=== PATIENT | male | born 1950 | race Caucasian/White ===

== ENCOUNTER 2023-10-12 08:50 | Observation (INO) ==
--- NOTE | 2023-10-12 10:24 | History & Physical Bridge Note ---
Date of Service October 12, 2023 History & Physical Bridge Note I have examined the patient, reviewed the History & Physical and in the interval since the performance of the History & Physical I have noted the following changes of clinical significance: no changes noted
--- NOTE | 2023-10-12 10:37 | Pre Anesthesia Assessment ---
Date of Service October 12, 2023 Pre Sedation Assessment Vital Signs Temp Pulse Resp BP Pulse Ox O2 Del Method 10/12/23 09:40 36.6 C 61 16 121/77 97 Room Air Cardiovascular RRR, no murmur, no edema Respiratory normal respiratory effort, lungs clear to auscultation Pre-Sedation Airway Assessment Smoking Status: Light tobacco smoker Hx Sleep Apnea: No Short, Thick Neck: No Thyromental Distance: > or= 3.5 Finger Breadths Oral Cavity: + WNL Mallampati Class: III ASA: ASA3 NPO Status Date of Last Intake of Fluids: 10/12/23 Time of Last Intake of Fluids: 07:00 Last Oral Intake of Fluids Comment: sips with meds Date of Last Intake of Solid Food: 10/11/23 Time of Last Intake of Solid Foods: 20:00 Procedure Planning Contraindications for Sedation: none Current Medications Reviewed: Yes Notes The planned sedation has been discussed with the patient. Informed Consent was obtained. I have identified the patient, determined the appropriateness of sedation and have assessed the patient immediately prior to the procedure. All medicine(s) and interventions are by my order.
[2023-10-12] MEDS: niCARdipine HCL INJ 2.5 MG/ML 10 ML AMP ONE (11:58)
[2023-10-12] MEDS: NITROGLYCERIN/D5W 100MCG/ML 20ML SYR ONE (11:59)
--- NOTE | 2023-10-12 12:32 | Cardiac Catheterization ---
[facility] Data: Client Project Coordinator Cardiac Status Clinical evaluation leading to the procedure CAD Presenation: Stable angina Anginal Classification: CCS III Heart Failure: No Cardiogenic Shock within 24 Hours: No Cardiac Arrest within 24 Hours: No Imaging Studies Past 6 Months: Yes Stress Studies Past 6 Months: No Coronary Anatomy Dominant: Right Diagnostic Physicians Name: Benjie Bains MD Status: Elective Closure Device Percutaneous Entry Location: Radial Closure Device: Radial Band Recommendations: Management Recommendatons Cardiac Cath Procedure Full Procedure Date October 12, 2023 Pre-Procedure Diagnosis Pre-Procedure Diagnosis: Angina AUC Score AUC Score: 7 Post-Procedure Diagnosis Post-Procedure Diagnosis: Moderate CAD Procedure(s) Performed Procedure(s) Performed: Coronary Angiography and Left Heart Cath Insurance Sales Assistant Benjie Bains MD User Experience Researcher(s) Rodri Estimated Blood Loss Estimated Blood Loss: < 20 ml Medication(s) Medication(s): Fentanyl, Heparin, Lidocaine 1%, Nicardipine and Versed Summary of Findings Procedure: 1. Coronary angiography 2. Left heart catheterization 3. Moderate sedation Indication: Mr. Gonzales is a pleasant 72-year-old gentleman with a history significant for left bundle branch block, PVCs and Crohn's disease. He has been experiencing exertional angina with associated shortness of breath and decreased exercise tolerance. Coronary angiography: 1. Left main: Distal 20-30%. 2. Left anterior descending: Calcifications noted proximal to mid LAD. Proximal LAD 20%. Mid LAD 60-70% at bifurcation of medium caliber D1. Possible severe CAD of ostial D1, 60-80%. Mid LAD approximately 60% at bifurcation of small D2. LAD wraps around the apex. SIRIA-3 flow. 3. Circumflex: Proximal circumflex 60% at bifurcation of very large OM1. Mid circumflex 30%. Distal circumflex 20%. Luminal irregularities proximal OM1. Multiple lateral branches from OM1 with first lateral branch ostial 70% but small caliber. Medium caliber OM 2 without significant CAD. 4. Right coronary artery: RCA is large and dominant. Diffuse mild CAD 30 to 40% throughout the proximal, mid, and distal RCA. PDA and PL branches without significant CAD. Left heart catheterization: 1. Left ventriculography was not performed. 2. LVEDP 14 mmHg. 3. No significant aortic stenosis. Moderate sedation: 1. Sedation start time: 11:55 AM 2. Sedation end time: 12:12 PM Procedural notes: 1. Catheterization was performed via the right radial artery without known complication. 2. Arterial spasm was noted in the right upper extremity when attempting to advance 6 Indonesian JR4 diagnostic catheter, following angiography of the left system. There was also difficulty advancing 5 Indonesian JR4 diagnostic catheter. 4 Indonesian JR4 diagnostic catheter was successfully advanced to perform selective coronary angiography of the RCA. 3. Additional sedation and intra-arterial nicardipine was provided. Impression: 1. Moderate to severe CAD involving the mid LAD, D1, and proximal circumflex. 2. Otherwise, nonobstructive CAD. 3. Mildly elevated left-sided filling pressure. 4. No aortic stenosis. Plan: 1. Images reviewed with Dr. Juarez of interventional cardiology who plans on pe rforming further investigation of LAD and circumflex CAD. Decisions on management will be made based upon these findings. 2. Risk factor modification. Hemodynamics Rest Ao:: 135/55 Final Ao: 123/61 LV: 132/7/14 Recommendations Recommendations: Management Recommendatons Specimens Specimens: None Radiation Exposure (mGy) 650 mGy. Fluoro time 4.5 min. Contrast (mls) 45 ml Procedural Complication(s) None Disposition remains in label operator for interventional cardiology as noted I attest to the content of the Intraoperative Record and any orders documented therein. Any exceptions are noted below. [facility] Card Cath Procedure Codes Cardiac Catheterization Procedure 1: Cardiovascular Cath Procedures: 41756 Coronaries and LHC (+/-LV) Moderate Sedation Procedure 1: Sedation/Anesthesia: 80935 Mod Sedation by the same physician;Init15 Min Child Age 5 & Up Procedure 2: Sedation/Anesthesia: 59929 Mod Sedation by the same physician; Ea [id number] Minutes PG Care Time/CCT Total # of Minutes Spent Total Time Spent with Patient: Total time spent is greater than 50% in coordination of care (as documented) at patient's floor/unit and/or counseling patient:
[2023-10-12] MEDS: ADENOSINE IV SOLN 3 MG/ML 20 ML VIAL IV ONE (13:43)
[2023-10-12] MEDS: fentaNYL citrate PF 100 MCG/2 ML VIAL ONE ×4 (13:44→15:03)
[2023-10-12] MEDS: HEPARIN (PORCINE) 1000 UNIT/ML 10 ML (CATH LAB USE ONLY) ONE ×2 (13:45→14:54)
[2023-10-12] MEDS: MIDAZOLAM HCL 1 MG/ML 2ML VIAL ONE ×6 (13:47→14:56)
[2023-10-12] MEDS: diphenhydrAMINE 50 MG/ML VIAL ONE (14:55)
[2023-10-12] MEDS: ONDANSETRON INJ 2 MG/ML 2 ML VIAL ONE (14:55)
[2023-10-12] MEDS: EPTIFIBATIDE 2 MG/ML 10 ML VIAL (CATH LAB USE ONLY) IV ONE (14:56)
[2023-10-12] MEDS: IODIXANOL (VISIPAQUE) 320 MG/ML 100ML IV ONE (15:03)
[2023-10-12] MEDS ORDERED: STAT IV Infusion **Titration per Protocol STA ×2 (15:40→16:29)
[2023-10-12] MEDS ORDERED: EPTIFIBATIDE BOLUS/DRIP IV STA (15:40)
[2023-10-12] MEDS ORDERED: EPTIFIBATIDE 75 MG/100 ML VIAL IV SCH (15:45)
[2023-10-12] MEDS ORDERED: ACETAMINOPHEN 325 MG TAB PO PRN (15:46)
--- NOTE | 2023-10-12 15:53 | History & Physical Report ---
Date of Service October 12, 2023 Assessment & Plan (1) Coronary artery disease: Plan: CAD s/p PCI - Cath results: Multivessel coronary artery disease. Calcified, diffuse proximal to mid LAD up to 80%x 90% calcified ostial D1x, Borderline diffuse mid circumflex disease. s/p PCI of proximal mid LAD with single drug-eluting stent c/b dissesction, unsuccessful PCI of proximal D1 with single ABDI. Unable to reopen occluded jailed stent. Echo pending. Last echo 2021 with EF 50-55%, abnormal septal motion consistent with bundle branch block. Has previously followed with [facility] 1 episode of V-fib during procedure s/p shock with return to sinus rhythm. Troponin trended Integrilin drip continued Was on nitro drip which was discontinued after the development of aVF, and restarted subsequently in the ICU. Brilinta/aspirin, beta-rhona, JARETT, statin per cardiology recommendations (2) Hypertension: Plan: Hypertension Beta-rhona, JARETT as noted (3) Kidney stones: Plan: History of nephrolithiasis Preoperative creatinine 1.21, creatinine on admission 0.78. No evidence of obstruction. No flank pain. (4) Crohns disease: Plan: S/p 3 partial resections. No longer on maintenance medications due to intolerance/side effects. No recent symptoms, although requires sublingual B12 supplementation. Denies recent diarrhea, hematochezia, melena, abdominal pain. No acute change in management at this time (5) Pulmonary embolism: Plan: History of DVT/PE Single episode of provoked PE treated with 4.5 months of anticoagulation which was then discontinued by outpatient providers. Has followed up with [facility] hematology, hypercoagulable workup was negative CTA 10/02/2023 for elevated D-dimer and tachycardia with no evidence of PE No acute change in management at this time Plan Disposition: ICU CODE STATUS: Full code Diet: Heart healthy Collateral pending, records have been faxed to PCPs office and [facility]. History of Present Illness Primary Care Provider: Noah Salmon 72-year-old male with a past medical history of hypertension, DVT/PE, Crohn's disease s/p partial bowel resection, LBBB, nephrolithiasis, And recurrent chest pain who presented for cardiac catheterization. During catheterization was found to have extensive CAD including 80% diffuse LAD disease, 60% proximal circumflex disease, and a dominant RCA with diffuse 30 to 40% disease. Patient underwent PCI of the LAD which was complicated by LAD dissection which was managed with stent placement, with loss of second diagonal. Patient pain had improved however experienced V-fib requiring 1 shock with return to sinus rhythm and hemodynamically stable since. Is recommended for ICU admission, Integrilin drip, and post PCI care. [facility] record request pending for collateral Johnny is seen at the bedside postcatheterization. Initially felt well, had return of 8/10 chest pain and was subsequently given morphine with improvement around 5/10. He is on a nitro gtt. which has been reinitiated and currently at a rate of 10. He reports that over the last 4 months he has had chest discomfort and shortness of breath limiting his exertion which improves at rest but which is gradually gotten worse. He did not have episodes of sweating with this. No prior history of CAD. He reports he does have a history of hypertension, past DVT, kidney stones. Presented for diagnostic catheterization and subsequently progressed to intervention. Had an episode of V-fib s/p cardioversion currently in sinus. Endorses a history of Crohn's for which he has had 3 partial bowel resections. He reports he was previously on Biologics but did not tolerate them due to extensive side effects follows currently with [facility] gastroenterology and is not on any maintenance medications, alth ough smokes a cigar daily which seems to keep his Crohn's in remission. Declines nicotine patch. He reports he rarely drinks alcohol. Allergy to penicillin as a child. Denies other medication allergies. Reports his right wrist is without pain or swelling at time of reassessment. Denies headache. Overall feels he is improving. No additional questions at bedside visit Allergies Allergy/AdvReac Type Severity Reaction Status Date / Time Penicillins Allergy Unknown as a child Verified 10/12/23 10:20 - unknown Home Medications Medication Instructions Recorded Confirmed Type cholecalciferol (vitamin D3) 250 250 mcg PO QAM 11/17/22 10/12/23 History mcg (10,000 unit) capsule mecobalamin (vitamin B12) 5,000 5,000 mcg PO QAM 11/17/22 10/12/23 History mcg chewable tablet omeprazole 20 mg capsule,delayed 20 mg PO DAILYBB 11/17/22 10/12/23 History release amlodipine 10 mg tablet 10 mg PO DAILY #90 tabs 02/07/23 10/12/23 Rx lisinopril 10 mg tablet 10 mg PO QAM 10/02/23 10/12/23 History aspirin 81 mg tablet,delayed 81 mg PO DAILY #90 tabs 10/05/23 10/12/23 Rx release metoprolol tartrate 25 mg tablet 25 mg PO BID #60 tabs 10/05/23 10/12/23 Rx Past Med/Surg History Problem List (Updated 10/12/23 @ 18:44 by Gerardo Adkins MD) Pulmonary embolism bilateral (March 2022) possibly related taking Stellara (no other possible cause). treated with anticoagulants for 4.5 months. no current issues. treated at [facility] in [place], [place] then patient did follow with [facility] at the time. negative work up. Crohns disease no current treatment - stable and controlled Coronary artery disease Ventricular fibrillation Exertional angina Thyroid nodule (Acute) Acute hypokalemia (Acute) Shortness of breath (Acute) Chest pain (Acute) Penile curvature, acquired Kidney stones frequent (x38) Hypertension Atypical chest pain Decreased exercise tolerance LBBB (left bundle branch block) PVCs (premature ventricular contractions) Abnormal ECG Encounter for pre-operative examination Right nephrolithiasis Medical History Hx of de la garza GERD (gastroesophageal reflux disease) Hx of thyroid nodule Crohns disease Pulmonary embolism Surgical History History of skin graft History of lithotripsy History of cystoscopy H/O left inguinal hernia repair History of cholecystectomy History of appendectomy History of esophagogastroduodenoscopy (EGD) History of bowel resection History of colonoscopy Family History Father FHx: Crohn's disease Social History Smoking Status: Light tobacco smoker Tobacco Type: Cigars Cigarettes Per Day: 1 cigar daily (advised); Second Hand Exposure: No; Do You Dip or Chew Tobacco: No; Hx Alcohol Use: Yes Hx Substance Use: No Preferred Language: Paraguayan Communication Ability: Effective Oil Processing Technician Required: No Beliefs That Will Affect Care: None Current Living Situation: Spouse Feels Safe at Home: Yes Physical Exam Physical Exam: General: A&Ox3. NAD. Cooperative. HEENT: Atraumatic, normocephalic. PERLAA. Vision and hearing grossly intact Pulm: CTAB A&P. -wheezes, -rales, -rhonchi. Symmetrical chest rise. No increased work of breathing. No respiratory distress. Cardiac: RRR, -mrg. Radial pulses intact and symmetrical. Abdominal: Nontender, nondistended, soft. BS present. Ext: RIGHT wrist with TR band in place. no hematoma. sensation intact in fingertips bilaterally.Cap refill brisk in fingertips bilaterally. No LE edema. Results & Data Results & Data Vital Signs (Past 12 Hours) Vital Signs Temp Pulse Resp BP Pulse Ox O2 Del Method O2 Flow Rate 10/12/23 15:35 75 18 124/69 97 Room Air, Nasal Cannula 10/12/23 15:25 75 18 131/77 97 Nasal Cannula 3 10/12/23 15:21 75 18 131/77 97 Nasal Cannula 3 10/12/23 15:13 75 18 131/77 97 Nasal Cannula 3 10/12/23 09:40 36.6 C 61 16 121/77 97 Room Air PG Care Time/CCT Total # of Minutes Spent Total Time Spent with Patient: Total time spent is greater than 50% in coordination of care (as documented) at patient's floor/unit and/or counseling patient: Coding Level of Care Code 22578 INT INP/OBS CARE 375MIN Diagnoses Coronary artery disease I25.10 Hypertension I10 Kidney stones N20.0 Crohns disease K50.90 Pulmonary embolism I26.99
[2023-10-12] MEDS: SODIUM CHLORIDE 0.9% 1,000 ML IV SCH (16:10)
--- NOTE | 2023-10-12 16:25 | Post Anesthesia Assessment ---
Date of Service October 12, 2023 Post Sedation Assessment Vital Signs Temp Pulse Resp BP Pulse Ox O2 Del Method O2 Flow Rate 10/12/23 15:46 73 18 130/74 95 Room Air, Nasal Cannula 10/12/23 15:45 70 18 130/71 97 Room Air, Nasal Cannula 10/12/23 15:35 75 18 124/69 97 Room Air, Nasal Cannula 10/12/23 15:25 75 18 131/77 97 Nasal Cannula 3 10/12/23 15:21 75 18 131/77 97 Nasal Cannula 3 10/12/23 15:13 75 18 131/77 97 Nasal Cannula 3 10/12/23 09:40 98 F 61 16 121/77 97 Room Air Recovery Score Activity: Moves 4 extremities Respiration: Deep Breath/Cough Circulation: +/-20% PreAnes Value Consciousness: Fully Awake Oxygen Saturation: O2 needed for >90% Discharge Sedation Level of Care: Fast Track Phase II Post Sedation Plan On clinical assessment, the patient appears to have tolerated the sedation without complications. Patient is recovering as anticipated. Patient will continue to be monitored by nursing and may be discharged when sedation discharge criteria are met per below protocol. Upon Completions of procedure up to 15 minutes continue every 5 minute vital signs and the P.A.R. score; then discharge to a Phase I or Fast Track to Phase II per the following guidelines: * Discharge Patient to appropriate Phase II area if PAR is 8 or greater or return to pre- procedure baseline. The post - procedure orders will be as directed. * If PAR score is less than 8 or not return to pre-procedure baseline then patient will follow Phase I monitoring till PAR is reached for Phase II. The Phase I may be done in procedure room or may call to secure a Phase I area. * If naloxone or flumazenil are used for reversal, hold in Phase I for continued monitoring from when last reversal dose was given for a minimum of 60 minutes or longer pending the nurse and/or physician discretion of patient condition before discharge to Phase II. Please call the Sedation Physician to re-evaluate and complete post-note for discharge to Phase II area. Do NOT discharge from procedure sedation or Phase 1 until post- sedation evaluation note is complete by procedure /sedation MD Sedation Discharge Instructions to be given to the patient at discharge to home.
[2023-10-12] MEDS: NITROGLYCERIN/D5W 100MCG/ML 250 ML IV SCH (16:26)
--- NOTE | 2023-10-12 16:29 | Cardiac Catheterization ---
[facility] Data: Health Services Information Specialist Cardiac Status Clinical evaluation leading to the procedure CAD Presenation: Unstable angina Anginal Classification: CCS III Diagnostic Physicians Name: Thomas Juarez MD Closure Device Recommendations: PCI without planned CABG Cardiac Cath Procedure Full Procedure Date October 12, 2023 Pre-Procedure Diagnosis Pre-Procedure Diagnosis: Angina, CAD and Cardiomyopathy AUC Score AUC Score: 7 Post-Procedure Diagnosis Post-Procedure Diagnosis: Severe CAD and Successful PCI Procedure(s) Performed Procedure(s) Performed: Coronary Angiography, Drug Eluting Stent, Ultrasound Guided Vascular Access, IVUS and Fractional Flow [employer] Representative Thomas Juarez MD Divemaster(s) Rodri Estimated Blood Loss Estimated Blood Loss: < 20 ml Medication(s) Medication(s): Adenosine, Fentanyl, Heparin, Lidocaine 1%, Nicardipine, Nitroglycerin and Versed Medication(s): Ticagrelor Summary of Findings Indication: Angina, cardiomyopathy Access: 6 Fr slender right radial artery Catheters: EBU 3.5 guide Findings: For full details of patient's coronary angiography please see cath report dictated by Dr. Bains. Briefly, patient found to have moderate to severe multivessel CAD. Decision to further assess with FFR. Procedure: -Left main cannulated with EBU 3.5 guide guide -BMW wire placed into distal LAD -ACIST Catheter placed across stenosis -Pd/Pa 0.91 -FFR 0.78 Prowater wire placed into distal circumflex -ACIST Catheter placed across stenosis -Pd/Pa 0.95 -FFR 0.80 -- PCI -- Antithrombotic therapy: Heparin, Integrilin, ticagrelor Procedure: Left main cannulated with EBU 3.5 guide Pre-procedure flow SIRIA [address] in LAD after FFR. Prowater wire navigated into first diagonal [place]ley IVUS catheter placed into mid LAD. Pullback revealed severe diffuse heavily calcified disease extending from mid segment back to proximal LAD. Also with 40 to 50% ostial stenosis. Mild eccentric calcified plaque (less than 20%) in distal left main. IVUS catheter placed into diagonal. Severe calcified ostial stenosis noted. Proximal diagonal lesion predilated with 2.0 compliant balloon 2.0 balloon placed into mid LAD Dilated diagonal lesion stented with 2.25 x 12 mm Xience drug-eluting stent placed at diagonal ostium. Stent postdilated with stent balloon Post stent deployment developed new chest pain and noted to have SIRIA I flow in LAD with evidence of mid LAD dissection/thrombus Additional heparin administered. Mid LAD dilated with 2.0 balloon, 2.5 and 3.0 balloons With the aid of GuideLiner support catheter proximal to mid LAD stented with 3.0 x 38 mm [place] drug-eluting stent Stent post-dilated with 3.5 noncompliant balloon Post stenting angiography revealed occluded D1 Numerous times made to rewire into D1 (commuter pilot 50, whisper, Fielder XT) but unsuccessful Residual severe stenosis at takeoff of D1 postdilated with 4.0 NC to high hemispheres but still with residual stenosis Proximal to mid LAD stent further postdilated with shockwave intravascular lithotripsy (3.5 balloon, 60 pulses). With shockwave had expansion of resistant mid aspect of stent. Further attempts made to rewire into diagonal again unsuccessful Noted to have residual stenosis in LAD stent and some concern for thrombus at takeoff of D2. Also noted to have with severe stenosis at ostium of jailed D2 with SIRIA I-II flow Started on Integrilin infusion LAD rewired with BMW. Second diagonal rewired with commuter pilot 50 Distal aspect of stent re-postdilated with 3.5 NC Jailed ostial/proximal D2 dilated with 2.0 balloon IC vasodilators administered for spasm Post procedure SIRIA 3 flow, LAD stent well-expanded with minimal residual stenosis. Jailed D2 with SIRIA III flow. Stent in D1 remained occluded despite numerous rewiring attempts. During procedure with occluded D1 had significant pain requiring repeated bolus fentanyl/Versed. Started on nitroglycerin infusion. During attempt made to measure post procedure LVEDP with pigtail patient developed VF requiring defibrillation at 200 J x 1. Post defibrillation had return to sinus rhythm and remained hemodynamically/electrically stable in Health Services Information Specialist/recovery area. Arterial Closure: TR band Summary: 1. Multivessel coronary artery disease -Calcified, diffuse proximal to mid LAD up to 80% (FFR 0.78). 90% calcified ostial D1 Borderline diffuse mid circumflex disease (FFR 0.80) 2. PCI of proximal to mid LAD with single drug-eluting stent (3.0 x 38 mm [place]; postdilated with 3.5, 4.0 NC and 3.5 intravascular lithotripsy balloon). 3. Unsuccessful PCI of proximal D1 with single ABDI. Unable to reopen occluded jailed stent. Recommendations: To ICU for continued monitoring, pain control Loaded with ticagrelor 180 mg in Health Services Information Specialist Continue Integrilin for 8 hours Continue dual-antiplatelet therapy for at least 1 year Trend troponin until peak, repeat echo in a.m. Consult cardiac Rehab Hemodynamics Rest Ao:: 123/61/107 Final Ao: 134/65/92 LV: 125/13 Recommendations Recommendations: PCI without planned CABG Specimens Specimens: None Radiation Exposure (mGy) 8107 Contrast (mls) 285 total Anesthesia Moderate [id number] Procedural Complication(s) None Disposition PCU I attest to the content of the Intraoperative Record and any orders documented therein. Any exceptions are noted below. [facility] Card Cath Procedure Codes Cardiac Catheterization Procedure 1: Cardiovascular Cath Procedures: 98101 (Doppler) Pressure Wire Procedure 2: Cardiovascular Cath Procedures: 28907 (Doppler) Pressure Wire Addl vessel Therapeutic Services & Ancillary Procedure 1: Cardiovascular Tx and Anc Procedures: 43600 IV Ultrasound (Coronary or Graft) Moderate Sedation Procedure 1: Sedation/Anesthesia: 36832 Mod Sedation by the same physician; Ea [id number] Minutes Stenting Procedure 1: Cardiovascular Stent Procedures: 95268 Perc transcatheter placement of intracoronary stent(s), with ang PG Care Time/CCT Total # of Minutes Spent Total Time Spent with Patient: Total time spent is greater than 50% in coordination of care (as documented) at patient's floor/unit and/or counseling patient:
[2023-10-12 16:56] LABS: Basophils # (auto) 0.07 K/uL (0.00-0.20); Basophils % (auto) 0.6 %; Eosinophils # (auto) 0.99 K/uL (0.00-0.50); Eosinophils % (auto) 8.2 %; Hematocrit (blood only) 39.4 % (42.0-52.0); Immature Granulocytes # (auto) 0.04 K/uL (0.01-0.20); Immature Granulocytes % (auto) 0.3 %; Lymphocytes # (auto) 2.08 K/uL (1.20-3.40); Lymphocytes % (auto) 17.2 %; Mean Corpuscular Hemoglobin 29.2 pg (25.0-34.0); Mean Corpuscular Volume 88.5 fL (80.0-100.0); Mean Platelet Volume 10.7 fL (9.4-12.4); Monocytes # (auto) 0.42 K/uL (0.11-0.59); Monocytes % (auto) 3.5 %; Neutrophils # (auto) 8.49 K/uL (1.40-6.50); Neutrophils % (auto) 70.2 %; Platelet Count 281 K/uL (130-400); RDW Coefficient of Variation 13.5 % (11.5-14.5); RDW Standard Deviation 43.8 fL (36.4-46.3); Red Blood Count 4.45 M/uL (4.70-6.10); White Blood Count 12.09 K/ul (4.8-10.8)
--- NOTE | 2023-10-12 17:08 | Critical Care Consultation ---
Date of Consultation October 12, 2023 Assessment & Plan (1) Ventricular fibrillation: (2) Coronary artery disease: (3) Chest pain: Plan 72-year-old male with a history of hypertension, DVT, Crohn's disease status post partial bowel resection, nephrolithiasis and left bundle branch block who presented for elective coronary angiography. Underwent stenting to the LAD and diagonal branches. Has diffuse severe disease noted on angiography. Had a bout of ventricular fibrillation and received defibrillation with 200 J in the [employer]. Regained consciousness with normal hemodynamics. Currently on Integrilin infusion. Monitor in ICU setting with telemetry and frequent neurovascular checks. Continue dual antiplatelets, high-dose statin, beta-blockade and Integrilin infusion per cardiology recommendations. Restart nitroglycerin if patient has worsening chest pain. Patient with frequent PVCs and ongoing chest pain. Currently titrating up nitroglycerin drip and will give additional morphine. Repeating BMP to check electrolytes. Follow troponins and echocardiogram. Discussed with landscape architecture professor. Thank you for the consult. Please call with questions. CRITICAL CARE TIME - I have personally spent 43 minutes of critical care time in the direct katharine gement of this patient. This is a life/limb threatening event. This includes time spent evaluating patient, direct bedside care, chart review, placing orders, interpretation of diagnostic studies, discussion with consultants, patient, and family members, as well as other required patient management activities. This time is exclusive of all separately billable procedures, and teaching time and separate from and in addition to any other critical care service time. History of Present Illness Reason for Consultation: Postcardiac cath monitoring Attending Physician: Gerardo Adkins MD History of Present Illness 72-year-old male who presented presented for an elective cardiac catheterization due to recurrent chest pain. He was found to have moderate to severe CAD involving the mid LAD, D1 and proximal circumflex. PCI was performed of the LAD. Diagonal lesion was also dilated and stented. There was concern for possible dissection which was covered by the stent. Patient tolerated the procedure well. A ventriculogram was attempted and patient went into ventricular fibrillation and received defibrillation at 200 J x 1. Patient was back in sinus rhythm and hemodynamically stable. He did have some ongoing chest pain and received repeated boluses of Versed and fentanyl. He was also started on a nitroglycerin drip briefly which was discontinued once the patient went into ventricular fibrillation. He remains on Integrilin infusion at this time. Blood pressure and heart rate remained stable. He has ongoing PVCs and complains of ongoing chest pain that is about a 7 out of 10. He denies any shortness of breath. He is currently on nitroglycerin drip which is infusing. Allergies Allergy/AdvReac Type Severity Reaction Status Date / Time Penicillins Allergy Unknown as a child Verified 10/12/23 10:20 - unknown Home Medications Medication Instructions Recorded Confirmed Type cholecalciferol (vitamin D3) 250 250 mcg PO QAM 11/17/22 10/12/23 History mcg (10,000 unit) capsule mecobalamin (vitamin B12) 5,000 5,000 mcg PO QAM 11/17/22 10/12/23 History mcg chewable tablet omeprazole 20 mg capsule,delayed 20 mg PO DAILYBB 11/17/22 10/12/23 History release amlodipine 10 mg tablet 10 mg PO DAILY #90 tabs 02/07/23 10/12/23 Rx lisinopril 10 mg tablet 10 mg PO QAM 10/02/23 10/12/23 History aspirin 81 mg tablet,delayed 81 mg PO DAILY #90 tabs 10/05/23 10/12/23 Rx release metoprolol tartrate 25 mg tablet 25 mg PO BID #60 tabs 10/05/23 10/12/23 Rx Patient History Medical History Hx of de la garza GERD (gastroesophageal reflux disease) Hx of thyroid nodule Crohns disease Pulmonary embolism Surgical History History of skin graft History of lithotripsy History of cystoscopy H/O left inguinal hernia repair History of cholecystectomy History of appendectomy History of esophagogastroduodenoscopy (EGD) History of bowel resection History of colonoscopy Family History Father FHx: Crohn's disease Social History Smoking Status: Light tobacco smoker Tobacco Type: Cigars Cigarettes Per Day: 1 cigar daily (advised); Second Hand Exposure: No; Do You Dip or Chew Tobacco: No; Hx Alcohol Use: Yes Hx Substance Use: No Preferred Language: Croatian Communication Ability: Effective Angiography Technologist Required: No Beliefs That Will Affect Care: None Current Living Situation: Spouse Feels Safe at Home: Yes Review of Systems Review of Systems: All systems reviewed & are unremarkable except as noted in HPI & below Physical Exam Physical Exam: Constitutional: Patient appears to be of their stated age. Patient is in no apparent distress. Patient is well-developed. Eyes: Pupils are equal round and reactive to light. Conjunctivae are normal. Anicteric sclera. Ears nose, mouth and throat: No perioral cyanosis. Neck: Trachea is midline. Visual inspection is normal. Respiratory: Clear to auscultation bilaterally. No use of accessory muscles. No significant clubbing noted. Cardiovascular: Regular rate and rhythm. No murmurs. No edema. Gastrointestinal: Normal bowel sounds, soft, nontender and nondistended. No hepatosplenomegaly noted. Musculoskeletal: No cyanosis. Patient is able to move all extremities. Strength is 5 out of 5 in the upper and lower extremities. Skin: No rashes, warm dry and intact. Neurologic: No obvious focal neurological deficits seen. Psychiatric: Alert and oriented x3 with a euthymic affect. Results & Data Results & Data Vital Signs (Past 12 Hours) Vital Signs Temp Pulse Resp BP Pulse Ox O2 Del Method O2 Flow Rate 10/12/23 16:45 70 20 131/78 92 Room Air 10/12/23 16:25 70 13 130/76 94 Room Air 10/12/23 16:09 36.4 C L 70 12 129/79 93 Room Air 10/12/23 15:46 73 18 130/74 95 Room Air, Nasal Cannula 10/12/23 15:45 70 18 130/71 97 Room Air, Nasal Cannula 10/12/23 15:35 75 18 124/69 97 Room Air, Nasal Cannula 10/12/23 15:25 75 18 131/77 97 Nasal Cannula 3 10/12/23 15:21 75 18 131/77 97 Nasal Cannula 3 10/12/23 15:13 75 18 131/77 97 Nasal Cannula 3 10/12/23 09:40 36.6 C 61 16 121/77 97 Room Air Coding Level of Care Code 84338 CRITICAL CARE 1ST 30-74M Diagnoses Ventricular fibrillation I49.01 Coronary artery disease I25.10 Chest pain R07.9
[2023-10-12] MEDS: MoRPHine SULFATE 4 MG/ML 1 ML CARP\\VIAL IV PRN (17:14)
[2023-10-12 17:15] LABS: Carbon Dioxide 18 mmol/L (21-32)
[2023-10-12] MEDS ORDERED: EPTIFIBATIDE IV ONE (17:15)
[2023-10-12] MEDS: ICU Protocol for HYPERglycemia SCH (17:16)
[2023-10-12] MEDS: TICAGRELOR 90 MG TAB ONE (17:21)
[2023-10-12] MEDS: NITROGLYCERIN/D5W 100 MCG/ML BTL ONE (17:21)
[2023-10-12 17:24] LABS: Troponin I High Sensitivity 1341.6 pg/ml (0-20)
[2023-10-12] MEDS: EPTIFIBATIDE 75 MG/100 ML VIAL IV SCH (17:27)
[2023-10-12 18:51] LABS: Magnesium 1.8 mg/dl (1.7-2.4); Potassium 3.7 mmol/L (3.5-5.1)
[2023-10-12] MEDS: METOPROLOL TARTRATE 25 MG TAB PO SCH (20:33)
[2023-10-13 05:19] LABS: BUN Creatinine Ratio 12.6 (10-20); Calcium 8.4 mg/dl (8.6-10.3); Chol HDL Ratio 2.9 (0-5); Creatinine Clr Calc Pharmacy 85.2 ml/min; Est GFR (Non-African American) 80.2 ml/min
[2023-10-13 05:25] LABS: Basophils # (auto) 0.08 K/uL (0.00-0.20); Basophils % (auto) 0.9 %; Eosinophils # (auto) 0.64 K/uL (0.00-0.50); Eosinophils % (auto) 6.9 %; Hematocrit (blood only) 40.6 % (42.0-52.0); Hemoglobin 13.6 g/dl (14.0-18.0); Immature Granulocytes # (auto) 0.02 K/uL (0.01-0.20); Immature Granulocytes % (auto) 0.2 %; Lymphocytes # (auto) 1.65 K/uL (1.20-3.40); Lymphocytes % (auto) 17.8 %; Mean Corpuscular Hemoglobin 29.4 pg (25.0-34.0); Mean Corpuscular Hgb Conc 33.5 g/dL (32.0-36.0); Mean Corpuscular Volume 87.9 fL (80.0-100.0); Mean Platelet Volume 9.4 fL (9.4-12.4); Monocytes # (auto) 0.61 K/uL (0.11-0.59); Monocytes % (auto) 6.6 %; Neutrophils # (auto) 6.28 K/uL (1.40-6.50); Neutrophils % (auto) 67.6 %; Platelet Count 247 K/uL (130-400); RDW Coefficient of Variation 12.9 % (11.5-14.5); RDW Standard Deviation 41.1 fL (36.4-46.3); Red Blood Count 4.62 M/uL (4.70-6.10); White Blood Count 9.28 K/ul (4.8-10.8)
[2023-10-13] MEDS: ONDANSETRON INJ 2 MG/ML 2 ML VIAL IV STA (06:31)
[2023-10-13 07:08] LABS: Magnesium 1.8 mg/dl (1.7-2.4)
[2023-10-13 07:17] LABS: Estimated Average Glucose 108 mg/dl; Hemoglobin A1C 5.4 % (4.5-5.6)
--- NOTE | 2023-10-13 07:26 | Hospitalist Progress Note ---
Date of Service October 13, 2023 Assessment & Plan (1) Coronary artery disease: Plan: CAD s/p PCI - Cath results: Multivessel coronary artery disease. Calcified, diffuse proximal to mid LAD up to 80%x 90% calcified ostial D1x, Borderline diffuse mid circumflex disease. s/p PCI of proximal mid LAD with single drug-eluting stent c/b dissesction, unsuccessful PCI of proximal D1 with single ABDI. Unable to reopen occluded jailed stent. Last echo 2021 with EF 50-55%, abnormal septal motion consistent with bundle branch block. Has previously followed with [facility] 1 episode of V-fib during procedure s/p 200J defibrillation with return to sinus rhythm. Troponin 1341->24714 Integrilin drip per protocol Brilinta/aspirin,Atorvastatin 80 mg, pre hospital was on metoprolol and will try to add JARETT/ARB per cardiology recommendations (2) Hypertension: Plan: Hypertension out pt was on amlodipine and metoprolol, now on tartrate 12.5 bid (3) Crohns disease: Plan: S/p 3 partial resections. No longer on maintenance medications due to intolerance/side effects. No recent symptoms, although requires sublingual B12 supplementation. Denies recent diarrhea, hematochezia, melena, abdominal pain. No acute change in management at this time (4) Pulmonary embolism: Plan: History of DVT/PE Single episode of provoked PE treated with 4.5 months of anticoagulation which was then discontinued by outpatient providers. Has followed up with [facility] hematology, hypercoagulable workup was negative CTA 10/02/2023 for elevated D-dimer and tachycardia with no evidence of PE No acute change in management at this time Plan CODE STATUS: Full code records have been faxed to PCPs office and [facility]. Admission and Anticipated Discharge Date Admission Date: October 12, 2023 Subjective Patient has no complaints or problems. Cardiology notes brief run of V. tach less than 10 beats overnight and there is subjective other note. I reviewed monitor strips did not see anything substantial or prolonged. Patient self has no problems or complaints he said no sensation of palpitations no chest pain catheterization site of his right wrist is clean dry and intact with good distal capillary refill and sensation Physical Exam Physical Exam: Cath site is healing appropriately and no complaints Card exam is regular that murmurs clicks or rubs Extremities are without edema Results & Data Results & Data Vital Signs (Past 12 Hours) Vital Signs Temp Pulse Resp BP Pulse Ox O2 Del Method O2 Flow Rate 10/13/23 06:45 135/76 10/13/23 06:45 135/76 10/13/23 06:45 135/76 10/13/23 06:42 77 14 93 10/13/23 06:31 127/69 10/13/23 06:31 127/69 10/13/23 06:24 93 H 20 90 10/13/23 06:15 83 18 93 10/13/23 06:15 136/64 10/13/23 06:15 136/64 10/13/23 06:06 82 19 92 10/13/23 06:00 119/77 10/13/23 05:42 73 18 93 10/13/23 05:30 127/67 10/13/23 05:27 81 19 93 10/13/23 05:15 136/70 10/13/23 05:09 72 19 93 10/13/23 05:00 133/58 L 10/13/23 05:00 133/58 L 10/13/23 05:00 63 14 93 10/13/23 04:45 66 18 94 10/13/23 04:45 128/61 10/13/23 04:45 128/61 10/13/23 04:45 128/61 10/13/23 04:31 104/66 10/13/23 04:27 75 14 94 10/13/23 04:16 127/74 10/13/23 04:16 127/74 10/13/23 04:12 94 H 14 92 10/13/23 04:06 74 17 93 10/13/23 04:01 133/74 10/13/23 04:01 133/74 10/13/23 04:00 98.2 F 67 10/13/23 03:36 76 20 94 10/13/23 03:15 136/69 10/13/23 03:01 117/59 L 10/13/23 03:01 117/59 L 10/13/23 03:00 68 17 94 10/13/23 02:46 130/71 10/13/23 02:45 63 13 94 10/13/23 02:16 135/66 10/13/23 02:16 135/66 10/13/23 02:12 77 10 L 93 10/13/23 02:03 78 17 94 10/13/23 02:00 132/73 10/13/23 01:54 70 17 93 10/13/23 01:31 127/71 10/13/23 01:16 126/75 10/13/23 01:16 126/75 10/13/23 01:03 81 18 93 10/13/23 01:00 128/64 10/13/23 01:00 128/64 10/13/23 00:54 71 17 94 10/13/23 00:45 133/71 10/13/23 00:27 73 16 93 10/13/23 00:16 117/67 10/13/23 00:06 67 15 94 10/13/23 00:03 70 15 94 10/13/23 00:01 131/61 10/13/23 00:01 131/61 10/13/23 00:00 98.4 F 10/13/23 00:00 77 10/12/23 23:45 123/77 10/12/23 23:45 123/77 10/12/23 23:45 72 16 94 10/12/23 23:30 74 15 94 10/12/23 23:30 124/76 10/12/23 23:30 124/76 10/12/23 23:30 124/76 10/12/23 23:18 78 19 95 10/12/23 23:16 123/61 10/12/23 23:16 123/61 10/12/23 23:15 70 18 94 10/12/23 23:00 121/70 10/12/23 23:00 73 18 94 10/12/23 22:45 117/66 10/12/23 22:45 71 19 93 10/12/23 22:31 121/67 10/12/23 22:31 121/67 10/12/23 22:27 70 17 93 10/12/23 22:15 120/66 10/12/23 22:03 74 17 92 10/12/23 22:00 102/73 10/12/23 22:00 102/73 10/12/23 22:00 102/73 10/12/23 22:00 102/73 10/12/23 21:54 74 16 92 10/12/23 21:46 121/69 07/17/24 21:46 121/69 10/12/23 21:33 70 11 L 92 10/12/23 21:30 123/67 10/12/23 21:30 123/67 10/12/23 21:15 91 H 21 93 10/12/23 21:15 139/117 H 10/12/23 21:15 139/117 H 10/12/23 21:00 75 19 92 10/12/23 21:00 128/68 10/12/23 21:00 128/68 10/12/23 20:45 116/66 10/12/23 20:45 116/66 10/12/23 20:45 116/66 10/12/23 20:45 73 16 93 10/12/23 20:30 144/63 H 10/12/23 20:30 144/63 H 10/12/23 20:26 121/75 10/12/23 20:26 121/75 10/12/23 20:24 71 18 93 10/12/23 20:00 66 12 94 10/12/23 20:00 128/68 10/12/23 20:00 128/68 10/12/23 20:00 Nasal Cannula 2 10/12/23 20:00 98.4 F 67 10/12/23 19:46 98.4 F 67 10/12/23 19:45 123/64 10/12/23 19:45 123/64 10/12/23 19:44 98.4 F 10/12/23 19:33 70 15 93 10/12/23 19:30 114/66 Laboratory Results Reviewed CBC reviewed chemistry reviewed troponin Downgrade to PCU status PG Care Time/CCT Total # of Minutes Spent Total Time Spent with Patient: Total time spent is greater than 50% in coordination of care (as documented) at patient's floor/unit and/or counseling patient: Coding Level of Care Code 95972 SUB INP/OBS CARE 2/35MIN Diagnoses Coronary artery disease I25.10 Hypertension I10 Crohns disease K50.90 Pulmonary embolism I26.99
[2023-10-13] MEDS: TICAGRELOR 90 MG TAB PO SCH (08:04)
[2023-10-13] MEDS: ASPIRIN 81 MG ECTAB PO SCH (08:05)
[2023-10-13] MEDS: PANTOprazole 40 MG TAB PO SCH (08:05)
[2023-10-13] MEDS: ATORVASTATIN 40 MG TAB PO SCH (08:05)
[2023-10-13] MEDS: MAGNESIUM SULFATE / D5W 1 GM/100 ML BAG IV SCH (10:02)
--- NOTE | 2023-10-13 10:48 | Critical Care Progress Note ---
Date of Service October 13, 2023 Assessment & Plan (1) Ventricular fibrillation: (2) Coronary artery disease: (3) Chest pain: Plan 72-year-old male with a history of hypertension, DVT, Crohn's disease status post partial bowel resection, nephrolithiasis and left bundle branch block who presented for elective coronary angiography. Underwent stenting to the LAD and diagonal branches. Has diffuse severe disease noted on angiography. 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 Regained consciousness with normal hemodynamics. Currently on Integrilin infusion. Monitor in ICU setting with telemetry and frequent neurovascular checks. Continue dual antiplatelets, high-dose statin, beta-blockade and Integrilin infusion per cardiology recommendations. Restart nitroglycerin if patient has worsening chest pain. Echo reviewed from the indicating mildly to moderately reduced systolic function of 40 to 45%. Normal RVSP. SCDs for DVT prophylaxis. Replacing magnesium. Continue electrolyte protocol. Disposition per cardiology. Discussed on multidisciplinary rounds. Thank you for the consult. Please call with questions. Admission and Anticipated Discharge Date Admission Date: October 12, 2023 Subjective Patient off of nitroglycerin drip. Pain in his chest has improved. He has had ongoing PVCs throughout the night. Hemodynamically otherwise he is stable. Review of Systems Review of Systems: All systems reviewed & are unremarkable except as noted in HPI & below Physical Exam Physical Exam: Constitutional: Patient appears to be of their stated age. Patient is in no apparent distress. Patient is well-developed. Eyes: Pupils are equal round and reactive to light. Conjunctivae are normal. Anicteric sclera. Ears nose, mouth and throat: No perioral cyanosis. Neck: Trachea is midline. Visual inspection is normal. Respiratory: Clear to auscultation bilaterally. No use of accessory muscles. No significant clubbing noted. Cardiovascular: Regular rate and rhythm. No murmurs. No edema. Gastrointestinal: Normal bowel sounds, soft, nontender and nondistended. No hepatosplenomegaly noted. Musculoskeletal: No cyanosis. Patient is able to move all extremities. Strength is 5 out of 5 in the upper and lower extremities. Skin: No rashes, warm dry and intact. Neurologic: No obvious focal neurological deficits seen. Psychiatric: Alert and oriented x3 with a euthymic affect. Results & Data Results & Data Vital Signs (Past 12 Hours) Vital Signs Temp Pulse Resp BP Pulse Ox O2 Del Method O2 Flow Rate 07/18/24 10:05 70 15 124/66 95 10/13/23 08:15 76 16 135/70 93 Nasal Cannula 2 10/13/23 08:02 69 18 94 10/13/23 08:00 135/68 10/13/23 08:00 36.7 C 10/13/23 07:59 70 15 135/68 94 10/13/23 07:48 Nasal Cannula 2 10/13/23 07:45 72 13 124/67 95 10/13/23 07:44 72 10/13/23 07:30 132/69 10/13/23 07:30 72 20 132/69 94 10/13/23 07:15 124/81 10/13/23 07:00 79 14 124/74 94 10/13/23 06:45 135/76 10/13/23 06:45 135/76 10/13/23 06:45 135/76 10/13/23 06:42 77 14 93 10/13/23 06:31 127/69 10/13/23 06:31 127/69 10/13/23 06:24 93 H 20 90 10/13/23 06:15 83 18 93 10/13/23 06:15 136/64 10/13/23 06:15 136/64 10/13/23 06:06 82 19 92 10/13/23 06:00 119/77 10/13/23 05:42 73 18 93 10/13/23 05:30 127/67 10/13/23 05:27 81 19 93 10/13/23 05:15 136/70 10/13/23 05:09 72 19 93 10/13/23 05:00 133/58 L 10/13/23 05:00 133/58 L 10/13/23 05:00 63 14 93 10/13/23 04:45 66 18 94 10/13/23 04:45 128/61 10/13/23 04:45 128/61 10/13/23 04:45 128/61 10/13/23 04:31 104/66 10/13/23 04:27 75 14 94 10/13/23 04:16 127/74 10/13/23 04:16 127/74 10/13/23 04:12 94 H 14 92 10/13/23 04:06 74 17 93 10/13/23 04:01 133/74 10/13/23 04:01 133/74 10/13/23 04:00 36.8 C 67 10/13/23 03:36 76 20 94 10/13/23 03:15 136/69 10/13/23 03:01 117/59 L 10/13/23 03:01 117/59 L 10/13/23 03:00 68 17 94 10/13/23 02:46 130/71 10/13/23 02:45 63 13 94 10/13/23 02:16 135/66 10/13/23 02:16 135/66 10/13/23 02:12 77 10 L 93 10/13/23 02:03 78 17 94 10/13/23 02:00 132/73 10/13/23 01:54 70 17 93 10/13/23 01:31 127/71 10/13/23 01:16 126/75 10/13/23 01:16 126/75 10/13/23 01:03 81 18 93 10/13/23 01:00 128/64 10/13/23 01:00 128/64 10/13/23 00:54 71 17 94 10/13/23 00:45 133/71 10/13/23 00:27 73 16 93 10/13/23 00:16 117/67 10/13/23 00:06 67 15 94 10/13/23 00:03 70 15 94 10/13/23 00:01 131/61 10/13/23 00:01 131/61 10/13/23 00:00 36.9 C 10/13/23 00:00 77 10/12/23 23:45 123/77 10/12/23 23:45 123/77 10/12/23 23:45 72 16 94 10/12/23 23:30 74 15 94 10/12/23 23:30 124/76 10/12/23 23:30 124/76 10/12/23 23:30 124/76 10/12/23 23:18 78 19 95 10/12/23 23:16 123/61 10/12/23 23:16 123/61 10/12/23 23:15 70 18 94 10/12/23 23:00 121/70 10/12/23 23:00 73 18 94 Coding Level of Care Code 10752 SUB INP/OBS CARE 235MIN Diagnoses Ventricular fibrillation I49.01 Coronary artery disease I25.10 Chest pain R07.9
[2023-10-13 12:00] LABS: Blood Urea Nitrogen 13 mg/dl (6-23); Chloride 108 mmol/L (98-107); Est GFR (African American) 99.2 ml/min; Est GFR (Non-African American) 85.6 ml/min
[2023-10-13 12:01] LABS: BUN Creatinine Ratio 14.4 (10-20); Calcium 8.3 mg/dl (8.6-10.3); Glucose 112 mg/dl (70-99(Fasting))
--- NOTE | 2023-10-13 12:28 | Cardiology Progress Note ---
Date of Service October 13, 2023 Assessment & Plan (1) Coronary artery disease: Plan: Post PCI with ABDI to LAD 10/12/2023 Intraprocedure occlusion of jailed [id number] managed 2. Intraprocedure VF during LV catheterization requiring fibrillation x 1 3. Nonsustained VT, frequent PVCs 4. CardiomyopathyEF 35 to 40%, apical anterolateral wall motion abnormalities 5. Hypertension 6. LBBB 7. Crohn's Chest pain-free this morning, now off nitroglycerin drip. Troponins peaked. Small new regional wall motion abnormality on echo, overall LV function largely unchanged. No signs of heart failure on exam Hemodynamically stable Ventricular ectopy slowing No access site complications. Continue DAPT with aspirin, ticagrelor Titrate up metoprolol. Toprol-XL on discharge Resume lisinopril. Will consider MRA as an outpatient Continue current statin Okay for transfer to telemetry today. Likely discharge tomorrow if no further significant ectopy. Appreciate ICU, hospital medicine care. Admission and Anticipated Discharge Date Admission Date: October 12, 2023 Subjective Feeling well currently. Chest pain resolved this morning. Now off nitroglycerin drip. No other new concerns. Telemetry reviewedbrief episode of nonsustained VT overnight (<10 beats). Intermittent PVCs HS TropI peaked at 57,000 Repeat limited echo today shows slight decline in LV function with new apical anterolateral wall motion abnormality Review of Systems Review of Systems: All systems reviewed & are unremarkable except as noted in HPI & below Physical Exam Physical Exam: General: Comfortable HEENT: Sclerae anicteric Lungs: Clear to auscultation bilaterally, no crackles or wheezes Cardiac: Regular rate and rhythm, no murmurs. Vascular: Right radial artery access site with no ecchymosis, hematoma. Distal pulse and sensation intact. Abdomen: Soft, nontender Extremities: Well perfused, no peripheral edema Neuro: Nonfocal Psych: Alert orient x3, normal affect and mood Results & Data Vital Signs (Past 12 Hours) Vital Signs Temp Pulse Resp BP Pulse Ox O2 Del Method O2 Flow Rate 10/13/23 10:05 70 15 124/66 95 10/13/23 08:15 76 16 135/70 93 Nasal Cannula 2 10/13/23 08:02 69 18 94 10/13/23 08:00 135/68 10/13/23 08:00 98.0 F 10/13/23 07:59 70 15 135/68 94 10/13/23 07:48 Nasal Cannula 2 10/13/23 07:45 72 13 124/67 95 10/13/23 07:44 72 10/13/23 07:30 132/69 10/13/23 07:30 72 20 132/69 94 10/13/23 07:15 124/81 10/13/23 07:00 79 14 124/74 94 10/13/23 06:45 135/76 10/13/23 06:45 135/76 10/13/23 06:45 135/76 10/13/23 06:42 77 14 93 10/13/23 06:31 127/69 10/13/23 06:31 127/69 10/13/23 06:24 93 H 20 90 10/13/23 06:15 83 18 93 10/13/23 06:15 136/64 10/13/23 06:15 136/64 10/13/23 06:06 82 19 92 10/13/23 06:00 119/77 10/13/23 05:42 73 18 93 10/13/23 05:30 127/67 10/13/23 05:27 81 19 93 10/13/23 05:15 136/70 10/13/23 05:09 72 19 93 10/13/23 05:00 133/58 L 10/13/23 05:00 133/58 L 10/13/23 05:00 63 14 93 10/13/23 04:45 66 18 94 10/13/23 04:45 128/61 10/13/23 04:45 128/61 10/13/23 04:45 128/61 10/13/23 04:31 104/66 10/13/23 04:27 75 14 94 10/13/23 04:16 127/74 10/13/23 04:16 127/74 10/13/23 04:12 94 H 14 92 10/13/23 04:06 74 17 93 10/13/23 04:01 133/74 10/13/23 04:01 133/74 10/13/23 04:00 98.2 F 67 10/13/23 03:36 76 20 94 10/13/23 03:15 136/69 10/13/23 03:01 117/59 L 10/13/23 03:01 117/59 L 10/13/23 03:00 68 17 94 10/13/23 02:46 130/71 10/13/23 02:45 63 13 94 10/13/23 02:16 135/66 10/13/23 02:16 135/66 10/13/23 02:12 77 10 L 93 10/13/23 02:03 78 17 94 10/13/23 02:00 132/73 10/13/23 01:54 70 17 93 10/13/23 01:31 127/71 10/13/23 01:16 126/75 10/13/23 01:16 126/75 10/13/23 01:03 81 18 93 10/13/23 01:00 128/64 10/13/23 01:00 128/64 10/13/23 00:54 71 17 94 10/13/23 00:45 133/71 10/13/23 00:27 73 16 93 PG Care Time/CCT Total # of Minutes Spent Total Time Spent with Patient: Total time spent is greater than 50% in coordination of care (as documented) at patient's floor/unit and/or counseling patient: Coding Level of Care Code 76524 SUB INP/OBS CARE 3/50MIN Diagnoses Coronary artery disease I25.10
[2023-10-13] MEDS: lisinopril 5 MG TAB PO SCH (14:43)
[2023-10-13] MEDS ORDERED: ICU ELECTROLYTE REPLACEMENT PROTOCOL SCH (18:00)
[2023-10-13] MEDS: METOPROLOL TARTRATE 25 MG TAB PO SCH (21:01)
[2023-10-13 22:44] VITALS: RESP 15
[2023-10-13 22:57] VITALS: BP 114/70; PULSE 75; TEMP 98.8; O2SAT 96
[2023-10-14] MEDS ORDERED: CHOLECALCIFEROL PO SCH (09:00)
[2023-10-14] MEDS ORDERED: HEPARIN (PORCINE) 1000 UNIT/ML 10 ML (CATH LAB USE ONLY) ONE (14:43)
[2023-10-14] MEDS ORDERED: MIDAZOLAM HCL 1 MG/ML 2ML VIAL ONE (14:43)
[2023-10-14] MEDS ORDERED: NITROGLYCERIN/D5W 100MCG/ML 20ML SYR ONE (14:44)
[2023-10-14] MEDS ORDERED: OPTIRAY 350 ONE (14:44)
[2023-10-14] MEDS ORDERED: niCARdipine HCL INJ 2.5 MG/ML 10 ML AMP ONE (14:44)
[2023-10-14] MEDS ORDERED: fentaNYL citrate PF 100 MCG/2 ML VIAL ONE (14:44)
--- NOTE | 2023-10-14 15:23 | Discharge Summary ---
Discharge Summary Date of Service October 14, 2023 Principal Dx & Hospital Course #1 = Principal Diagnosis (1) Coronary artery disease: CAD s/p PCI - Cath results: Multivessel coronary artery disease. Calcified, diffuse proximal to mid LAD up to 80%x 90% calcified ostial D1x, Borderline diffuse mid circumflex disease. s/p PCI of proximal mid LAD with single drug-eluting stent c/b dissesction, unsuccessful PCI of proximal D1 with single ABDI. Unable to reo pen occluded jailed stent. Last echo 2021 with EF 50-55%, abnormal septal motion consistent with bundle branch block. Has previously followed with [facility] 1 episode of V-fib during procedure s/p 200J defibrillation with return to sinus rhythm. Troponin 1341->11767 Integrilin drip per protocol Plavix /aspirin,Atorvastatin 80 mg, pre hospital was on lisinopril will also add metoprolol succinate daily and stop amlodipine (2) Hypertension: Hypertension out pt was on amlodipine and lisnioril, now metoprolol succinate 50 mg daily in addition to the lisinopril (3) Crohns disease: S/p 3 partial resections. No longer on maintenance medications due to intolerance/side effects. No recent symptoms, although requires sublingual B12 supplementation. Denies recent diarrhea, hematochezia, melena, abdominal pain. No acute change in management at this time (4) Pulmonary embolism: History of DVT/PE Single episode of provoked PE treated with 4.5 months of anticoagulation which was then discontinued by outpatient providers. Has followed up with [facility] hematology, hypercoagulable workup was negative CTA 10/02/2023 for elevated D-dimer and tachycardia with no evidence of PE No acute change in management at this time Plan CODE STATUS: Full code records have been faxed to PCPs office and [facility]. Notes For Next Care Provider pt was on metoprolol succinate 50, please eval dosing, Admission HPI Per Admitting Provider 72-year-old male with a past medical history of hypertension, DVT/PE, Crohn's disease s/p partial bowel resection, LBBB, nephrolithiasis, And recurrent chest pain who presented for cardiac catheterization. During catheterization was found to have extensive CAD including 80% diffuse LAD disease, 60% proximal circumflex disease, and a dominant RCA with diffuse 30 to 40% disease. Patient underwent PCI of the LAD which was complicated by LAD dissection which was managed with stent placement, with loss of second diagonal. Patient pain had improved however experienced V-fib requiring 1 shock with return to sinus rhythm and hemodynamically stable since. Is recommended for ICU admission, Integrilin drip, and post PCI care. [facility] record request pending for collateral Johnny is seen at the bedside postcatheterization. Initially felt well, had return of 8/10 chest pain and was subsequently given morphine with improvement around 5/10. He is on a nitro gtt. which has been reinitiated and currently at a rate of 10. He reports that over the last 4 months he has had chest discomfort and shortness of breath limiting his exertion which improves at rest but which is gradually gotten worse. He did not have episodes of sweating with this. No prior history of CAD. He reports he does have a history of hypertension, past DVT, kidney stones. Presented for diagnostic catheterization and subsequently progressed to intervention. Had an episode of V-fib s/p cardioversion currently in sinus. Endorses a history of Crohn's for which he has had 3 partial bowel resections. He reports he was previously on Biologics but did not tolerate them due to extensive side effects follows currently with [facility] gastroenterology and is not on any maintenance medications, although smokes a cigar daily which seems to keep his Crohn's in remission. Declines nicotine patch. He reports he rarely drinks alcohol. Allergy to penicillin as a child. Denies other medication allergies. Reports his right wrist is without pain or swelling at time of reassessment. Denies headache. Overall feels he is improving. No additional questions at bedside visit Discharge Exam awake and alert, cardiac is regular, lungs are clear, cath site is clean and dry Updated Medication List Medication Instructions Recorded Confirmed Type cholecalciferol (vitamin D3) 250 250 mcg PO QAM 11/17/22 10/12/23 History mcg (10,000 unit) capsule mecobalamin (vitamin B12) 5,000 5,000 mcg PO QAM 11/17/22 10/12/23 History mcg chewable tablet omeprazole 20 mg capsule,delayed 20 mg PO DAILYBB 11/17/22 10/12/23 History release amlodipine 10 mg tablet 10 mg PO DAILY #90 tabs 02/07/23 10/12/23 Rx lisinopril 10 mg tablet 10 mg PO QAM 10/02/23 10/12/23 History aspirin 81 mg tablet,delayed 81 mg PO DAILY #90 tabs 10/05/23 10/12/23 Rx release metoprolol tartrate 25 mg tablet 25 mg PO BID #60 tabs 10/05/23 10/12/23 Rx ticagrelor 90 mg tablet (Brilinta) 90 mg PO BID #60 tabs 10/13/23 Rx Hospital Stay Data Consultations 10/12/23 15:38 Consult Equipment Manager Routine 10/13/23 16:38 Consult Cardiac Rehabilitation Routine Procedures Performed Operation Date: 10/14/23 14:45 <No data on this case meets the specified criteria> Diagnostic Imagining Performed 10/12/23 06:55 CL Cath Imgs for PACS use only Routine 10/12/23 15:30 CL IVUS Coronary Single Vessel Routine 10/14/23 14:41 CL Cath Imgs for PACS use only Stat Total Time Total Time Spent Total Time Spent (In Minutes): it took greater than 30 minutes to complete this discharge summary Coding Level of Care Code 16889 INP/OBS DISCH >30 MIN Diagnoses Coronary artery disease I25.10 Hypertension I10 Crohns disease K50.90 Pulmonary embolism I26.99
--- NOTE | 2023-10-14 15:56 | Electrocardiogram Report ---
Test Reason : Blood Pressure : / mmHG Vent. Rate : 073 BPM Atrial Rate : 073 BPM P-R Int : 192 ms QRS Dur : 154 ms QT Int : 484 ms P-R-T Axes : 070 -17 078 degrees QTc Int : 533 ms Normal sinus rhythm Left bundle branch block Abnormal ECG When compared with ECG of 02-OCT-2023 18:58, QRS duration has increased Confirmed by Jae Brunner ([id number]) on 10/14/2023 3:56:25 PM Referred By: Benjie Bains Confirmed By:Jae Brunner
[2023-10-14 19:32] LABS: Albumin Globulin Ratio 1.3 (0.9-2); Albumin Level 3.7 gm/dl (3.4-5.0); Bilirubin,Total 3.2 mg/dl (0.2-1.0); Calcium 8.8 mg/dl (8.6-10.3); Est GFR (African American) 99.2 ml/min; Est GFR (Non-African American) 85.6 ml/min; Globulin 2.8 gm/dl (2.5-4.0); Magnesium 2.1 mg/dl (1.7-2.4); Potassium 3.4 mmol/L (3.5-5.1); Total Protein 6.5 gm/dl (6.0-8.3)
[2023-10-14 21:51] LABS: Basophils # (auto) 0.06 K/uL (0.00-0.20); Basophils % (auto) 0.7 %; Eosinophils # (auto) 0.37 K/uL (0.00-0.50); Eosinophils % (auto) 4.4 %; Hemoglobin 14.3 g/dl (14.0-18.0); Immature Granulocytes # (auto) 0.03 K/uL (0.01-0.20); Immature Granulocytes % (auto) 0.4 %; Lymphocytes # (auto) 1.26 K/uL (1.20-3.40); Mean Corpuscular Hemoglobin 29.3 pg (25.0-34.0); Mean Corpuscular Volume 86.1 fL (80.0-100.0); Mean Platelet Volume 9.8 fL (9.4-12.4); Monocytes # (auto) 0.62 K/uL (0.11-0.59); Monocytes % (auto) 7.4 %; Neutrophils # (auto) 6.04 K/uL (1.40-6.50); Neutrophils % (auto) 72.1 %; Platelet Count 213 K/uL (130-400); RDW Coefficient of Variation 12.8 % (11.5-14.5); RDW Standard Deviation 39.7 fL (36.4-46.3); Red Blood Count 4.88 M/uL (4.70-6.10); White Blood Count 8.38 K/ul (4.8-10.8)
--- NOTE | 2023-10-15 18:03 | XCELERA ---
[id number]
== END 2023-10-14 15:54 | disposition home or self-care (01) | DRG 321 ==
LOC: CC 08:50 → INTOOBSV 15:38 → 1E 15:38 → SUATTDRO 15:38

== ENCOUNTER 2023-10-16 08:08 | Inpatient (IN) ==
--- NOTE | 2023-10-16 08:23 | History & Physical Report ---
Date of Service October 16, 2023 Assessment & Plan (1) Coronary artery disease: Plan: presented with 9/10 CP to [facility] has LAD stent 10/11, dc on asa/plavix/metoprolol/lisinopril/atorvastatin ECG with LBBB similar to old Pain not 5/10, BP stable, oxygen sat stable. Patient had a catheterization lab found to have a small diagonal 2 which is likely culprit lesion. LAD stent was wide open. Diagonal 2 was ballooned. Patient had good resolution of his symptoms. Cardiology requested attempts to secure prasugrel in addition to aspirin for discharge (2) Crohns disease: Plan: no GI symptoms, pervious surgery, on omeprazole History of Present Illness Primary Care Provider: Noah Salmon 72-year-old male patient transferred from [facility] due to unstable angina concern for acute EKG changes. Patient underwent a left heart catheterization 10/12/2023 at [facility] which showed multivessel coronary artery disease with increased calcifications. Patient had a stent placed to his mid LAD and attempted stent to the first diagonal was unsuccessful. The. Patient typically follows with [facility]. Patient did have episode of V-fib during the procedure which required defibrillation with 200 J with good success. Patient's troponin peaked 57,000. Due to computer downtime patient was discharged on aspirin and Plavix. Initially the chart was listed as Brilinta but this was not cost effective for the patient he was loaded with 300 mg of Plavix prior to discharge and discharged home on Plavix and aspirin for his antiplatelet agents, metoprolol, lisinopril, atorvastatin. Allergies Allergy/AdvReac Type Severity Reaction Status Date / Time Penicillins Allergy Unknown as a child Verified 10/12/23 10:20 - unknown Home Medications Medication Instructions Recorded Confirmed Type cholecalciferol (vitamin D3) 250 250 mcg PO QAM 11/17/22 10/12/23 History mcg (10,000 unit) capsule mecobalamin (vitamin B12) 5,000 5,000 mcg PO QAM 11/17/22 10/12/23 History mcg chewable tablet omeprazole 20 mg capsule,delayed 20 mg PO DAILYBB 11/17/22 10/12/23 History release amlodipine 10 mg tablet 10 mg PO DAILY #90 tabs 02/07/23 10/12/23 Rx lisinopril 10 mg tablet 10 mg PO QAM 10/02/23 10/12/23 History aspirin 81 mg tablet,delayed 81 mg PO DAILY #90 tabs 10/05/23 10/12/23 Rx release metoprolol tartrate 25 mg tablet 25 mg PO BID #60 tabs 10/05/23 10/12/23 Rx ticagrelor 90 mg tablet (Brilinta) 90 mg PO BID #60 tabs 10/13/23 Rx Past Med/Surg History Problem List (Updated 10/16/23 @ 10:39 by Elli Fraga MD, [facility]) GERD (gastroesophageal reflux disease) Systolic CHF Pulmonary embolism bilateral (March 2022) possibly related taking Stellara (no other possible cause). treated with anticoagulants for 4.5 months. no current issues. treated at [facility] in [place], [place] then patient did follow with [facility] at the time. negative work up. Crohns disease no current treatment - stable and controlled Coronary artery disease Ventricular fibrillation Exertional angina Thyroid nodule (Acute) Acute hypokalemia (Acute) Shortness of breath (Acute) Chest pain (Acute) Penile curvature, acquired Kidney stones frequent (x38) Hypertension Atypical chest pain Decreased exercise tolerance LBBB (left bundle branch block) PVCs (premature ventricular contractions) Abnormal ECG Encounter for pre-operative examination Right nephrolithiasis Medical History Hx of de la garza GERD (gastroesophageal reflux disease) Hx of thyroid nodule Crohns disease Pulmonary embolism Surgical History History of skin graft History of lithotripsy History of cystoscopy H/O left inguinal hernia repair History of cholecystectomy History of appendectomy History of esophagogastroduodenoscopy (EGD) History of bowel resection History of colonoscopy Family History Father FHx: Crohn's disease Social History Smoking Status: Former smoker Tobacco Type: Cigars Cigarettes Per Day: 1 cigar daily (advised); Second Hand Exposure: No; Do You Dip or Chew Tobacco: No; Tobacco Cessation Education Requested by Patient: No Hx Alcohol Use: Yes Alcohol type: beer Hx Substance Use: No Preferred Language: Ivorian Communication Ability: Effective Attorney Required: No Beliefs That Will Affect Care: None Current Living Situation: Spouse Other Information That Helps Us Care for You: No Feels Safe at Home: Yes Safety Concerns: Feels Safe At This Time Assistive Devices: Glasses Physical Exam Physical Exam: The patient appeared well nourished and normally developed. Vital signs as documented. Head exam is normocephalic atraumatic Neck is without JVD, thyromegaly, or carotid bruits. Lungs are clear to auscultation, no focal loss of breath sounds Cardiac exam, Rhythm is regular.. No murmurs, rubs or gallops. Abdominal exam reveals normal bowel sounds, soft non tender, no masses Extremities are nonedematous and both pedal pulses are present Neurologic exam is alert and oriented, no focal loss of strength or sensation Skin is without bruises or rashes Psychologically is without concerns for anxiety or depression.. Code Status & VTE Plan VTE Prophylaxis Plan VTE Prophylaxis will be ordered: Yes PG Care Time/CCT Total # of Minutes Spent Total Time Spent with Patient: Total time spent is greater than 50% in coordination of care (as documented) at patient's floor/unit and/or counseling patient: Coding Level of Care Code 89160 INT INP/OBS CARE MIN Diagnoses Coronary artery disease I25.10 Crohns disease K50.90
[2023-10-16] MEDS ORDERED: MoRPHine SULFATE 2 MG/ML CARP IV PRN (10:23)
[2023-10-16] MEDS ORDERED: ONDANSETRON INJ 2 MG/ML 2 ML VIAL IV PRN (10:24)
--- NOTE | 2023-10-16 10:32 | Pre Anesthesia Assessment ---
Date of Service October 16, 2023 Pre Sedation Assessment Cardiovascular + regular rate Respiratory + respiratory effort normal Pre-Sedation Airway Assessment Smoking Status: Light tobacco smoker Hx Sleep Apnea: No Hx Difficult Intubation: No Short, Thick Neck: No Oral Cavity: + Dental Abnormalities Mallampati Class: III ASA: ASA3 Procedure Planning Contraindications for Sedation: none Current Medications Reviewed: Yes Notes The planned sedation has been discussed with the patient. Informed Consent was obtained. I have identified the patient, determined the appropriateness of sedation and have assessed the patient immediately prior to the procedure. All medicine(s) and interventions are by my order.
[2023-10-16] MEDS: MoRPHine SULFATE 2 MG/ML CARP ONE (10:33)
[2023-10-16] MEDS: MoRPHine SULFATE 2 MG/ML CARP IV STA (10:34)
[2023-10-16] MEDS: HEPARIN SOD (PORCINE) 1000 UNIT/ML ONE (10:35)
[2023-10-16 10:37] LABS: Hematocrit (blood only) 39.6 % (42.0-52.0); Hemoglobin 13.6 g/dl (14.0-18.0); Mean Corpuscular Hemoglobin 29.8 pg (25.0-34.0); Mean Corpuscular Hgb Conc 34.3 g/dL (32.0-36.0); Mean Corpuscular Volume 86.7 fL (80.0-100.0); Mean Platelet Volume 10.2 fL (9.4-12.4); Platelet Count 227 K/uL (130-400); RDW Coefficient of Variation 12.4 % (11.5-14.5); RDW Standard Deviation 39.2 fL (36.4-46.3); Red Blood Count 4.57 M/uL (4.70-6.10); White Blood Count 7.94 K/ul (4.8-10.8)
[2023-10-16] MEDS: ONDANSETRON INJ 2 MG/ML 2 ML VIAL IV STA (10:37)
[2023-10-16] MEDS: ONDANSETRON INJ 2 MG/ML 2 ML VIAL ONE (10:38)
--- NOTE | 2023-10-16 10:44 | Critical Care Consultation ---
Date of Consultation October 16, 2023 Assessment & Plan (1) Crohns disease: (2) Coronary artery disease: (3) Chest pain: (4) LBBB (left bundle branch block): (5) Abnormal ECG: (6) Systolic CHF: (7) GERD (gastroesophageal reflux disease): Plan 2D echo 10/15/2023: EF 35-40%, mild to moderate mid to apical hypokinesis, normal RV size and function -- Unstable angina History of coronary artery disease s/p stenting mid LAD 10/12/2023 Unsuccessful PCI of the proximal D1 LAD 10/12/2023 On Plavix, metoprolol, lisinopril, atorvastatin as well as aspirin at home --Hypertension Continue with home blood pressure medication --History of Crohn's disease S/p surgery Not on any medications right now --Prophylaxis VTE: IPC GI: Pantoprazole Lines: Peripheral Diet: N.p.o. Plan: N.p.o. For cardiac cath Chest x-ray did not show any acute abnormalities within the lung parenchyma Trend troponins as well as EKG Please note the above document was generated using voice recognition software. It may contain grammatical, syntax or spelling errors.Any formal questions or concerns about the content, text or information contained within the body of this dictation should be directly addressed to the provider for clarification. History of Present Illness Attending Physician: Brody Lunsford MD History of Present Illness 72-year-old male was transferred from [facility] ER because of chest pain Past medical history: Coronary artery disease s/p stent 10/12/23, Crohn's disease, hypertension, dyslipidemia Heart alert was called in the ICU. Seaming Machine Operator Dr. Juarez were also at bedside. The time of examination patient systolic blood pressure was in the 110s. Saturation was 98-99% on 2 L nasal cannula Heart rate was in the 70s. Patient says that he is compliant with his medication and did not miss any of the dose He stated that he was doing well up until in the morning at around 6 PM when he started to feel chest tightness. It was similar feeling for when he came to the hospital for the first stent No palpitations, mild dizziness, no diaphoresis. No significant shortness of breath. Occasional cough with clear phlegm. Denies any hemoptysis. No hematuria, hematochezia, epistaxis. Social history: Smokes cigar on a recreational basis. Allergies Allergy/AdvReac Type Severity Reaction Status Date / Time Penicillins Allergy Unknown as a child Verified 10/12/23 10:20 - unknown Home Medications Medication Instructions Recorded Confirmed Type cholecalciferol (vitamin D3) 250 250 mcg PO QAM 11/17/22 10/12/23 History mcg (10,000 unit) capsule mecobalamin (vitamin B12) 5,000 5,000 mcg PO QAM 11/17/22 10/12/23 History mcg chewable tablet omeprazole 20 mg capsule,delayed 20 mg PO DAILYBB 11/17/22 10/12/23 History release amlodipine 10 mg tablet 10 mg PO DAILY #90 tabs 02/07/23 10/12/23 Rx lisinopril 10 mg tablet 10 mg PO QAM 10/02/23 10/12/23 History aspirin 81 mg tablet,delayed 81 mg PO DAILY #90 tabs 10/05/23 10/12/23 Rx release metoprolol tartrate 25 mg tablet 25 mg PO BID #60 tabs 10/05/23 10/12/23 Rx ticagrelor 90 mg tablet (Brilinta) 90 mg PO BID #60 tabs 10/13/23 Rx Patient History Medical History Hx of de la garza GERD (gastroesophageal reflux disease) Hx of thyroid nodule Crohns disease Pulmonary embolism Surgical History History of skin graft History of lithotripsy History of cystoscopy H/O left inguinal hernia repair History of cholecystectomy History of appendectomy History of esophagogastroduodenoscopy (EGD) History of bowel resection History of colonoscopy Family History Father FHx: Crohn's disease Social History Smoking Status: Light tobacco smoker Tobacco Type: Cigars Cigarettes Per Day: 1 cigar daily (advised); Second Hand Exposure: No; Do You Dip or Chew Tobacco: No; Hx Alcohol Use: Yes Hx Substance Use: No Preferred Language: Setswana Communication Ability: Effective Dietary Internship Required: No Beliefs That Will Affect Care: None Current Living Situation: Spouse Feels Safe at Home: Yes Assistive Devices: None Review of Systems Review of Systems: All systems reviewed & are unremarkable except as noted in HPI & below Physical Exam Physical Exam: Constitutional: No acute distress HEENT: EOMI, PERRLA Respiratory system: Good air entry bilaterally, no wheeze, no rhonchi, mild crackles bilateral lower lobes CVS: S1-S2 positive, no murmurs or gallops, distant heart sounds Abdomen: Soft, nontender, nondistended, positive bowel sounds x4, midline abdominal scar appreciated Extremities: +2 pulses bilaterally radialis/ dorsalis pedis, no cyanosis, no edema Neuro: Awake alert oriented x3 Psych: Normal mood and affect G/U: No Puri Skin: no rashes, warm and dry Lymphatic: no cervical or axillary lymphadenopathy Coding Level of Care Code 17070 IN/OBS CONSULT LVL 4,60M Diagnoses Crohns disease K50.90 Coronary artery disease I25.10 Chest pain R07.9 LBBB (left bundle branch block) I44.7 Abnormal ECG R94.31 Systolic CHF I50.20 GERD (gastroesophageal reflux disease) K21.9
--- NOTE | 2023-10-16 10:46 | Cardiology Consultation ---
Date of Consultation October 16, 2023 Assessment & Plan (1) Coronary artery disease: Presentation suspicious for stent thrombosis and recommend repeat cardiac catheterization to further evaluate. Procedure discussed with patient including risks, benefits and in agreement with procedure. Further recommendations pending findings. History of Present Illness Attending Physician: Brody Lunsford MD History of Present Illness Mr. Gonzales is a 72 year old man with CAD, cardiomyopathy here with recurrent chest pain. Primary demand generation manager is Dr. Bains. Underwent cardiac cath revealing multivessel disease with severe LAD/D1 bifurcation disease by FFR/IVUS. Underwent PCI of LAD complicated by D1 occlusion, and episode of VF requiring defib x1. Post procedure HsTrop peaked at 57K. Echo showed EF35% with apical anterior/lateral wall motion abnormality. Discharged 2 days ago CP free. Reports exertional headache for yesterday but no chest pain. This morning feeling fine at 5AM. 6AM woke up with recurrent CP similar to what had during recent admit. Presented to [facility] where chest pain worsened with dynamic ST changes (chronic LBBB). Transferred emergently. Still with ongoing 5/10 CP on arrival. ECG sinus with LBBB and ST depressions in inferior leads unchanged from 10/11 (non-sgarbossa). Echo shows EF 30-35% with abnormal septal motion and anterior hypokinesis, no pericardial effusion. Allergies Allergy/AdvReac Type Severity Reaction Status Date / Time Penicillins Allergy Unknown as a child Verified 10/12/23 10:20 - unknown Home Medications Medication Instructions Recorded Confirmed Type cholecalciferol (vitamin D3) 250 250 mcg PO QAM 11/17/22 10/12/23 History mcg (10,000 unit) capsule mecobalamin (vitamin B12) 5,000 5,000 mcg PO QAM 11/17/22 10/12/23 History mcg chewable tablet omeprazole 20 mg capsule,delayed 20 mg PO DAILYBB 11/17/22 10/12/23 History release amlodipine 10 mg tablet 10 mg PO DAILY #90 tabs 02/07/23 10/12/23 Rx lisinopril 10 mg tablet 10 mg PO QAM 10/02/23 10/12/23 History aspirin 81 mg tablet,delayed 81 mg PO DAILY #90 tabs 10/05/23 10/12/23 Rx release metoprolol tartrate 25 mg tablet 25 mg PO BID #60 tabs 10/05/23 10/12/23 Rx ticagrelor 90 mg tablet (Brilinta) 90 mg PO BID #60 tabs 10/13/23 Rx Patient History Medical History Hx of de la garza GERD (gastroesophageal reflux disease) Hx of thyroid nodule Crohns disease Pulmonary embolism Surgical History History of skin graft History of lithotripsy History of cystoscopy H/O left inguinal hernia repair History of cholecystectomy History of appendectomy History of esophagogastroduodenoscopy (EGD) History of bowel resection History of colonoscopy Family History Father FHx: Crohn's disease Social History Smoking Status: Light tobacco smoker Tobacco Type: Cigars Cigarettes Per Day: 1 cigar daily (advised); Second Hand Exposure: No; Do You Dip or Chew Tobacco: No; Hx Alcohol Use: Yes Hx Substance Use: No Preferred Language: Tongan Communication Ability: Effective Dish Up Person Required: No Beliefs That Will Affect Care: None Current Living Situation: Spouse Feels Safe at Home: Yes Assistive Devices: None Review of Systems Review of Systems: All systems reviewed & are unremarkable except as noted in HPI & below Physical Exam Physical Exam: General: Uncomfortable, mildly diaphoretic HEENT: Sclerae anicteric Lungs: Clear to auscultation bilaterally, no crackles Cardiac: Regular rate and rhythm, no murmurs. Vascular: 2+ radial, forearm ecchymosis Abdomen: Soft, nontender Extremities: Well perfused, no peripheral edema Neuro: Nonfocal Psych: Alert orient x3, normal affect and mood PG Care Time/CCT Total # of Minutes Spent Total Time Spent with Patient: Total time spent is greater than 50% in coordination of care (as documented) at patient's floor/unit and/or counseling patient: Coding Level of Care Code 12732 INT INP/OBS CARE 2/55MIN Diagnoses Coronary artery disease I25.10
[2023-10-16 10:50] LABS: ANTI-Xa, UFH(UnfractionatedHep < 0.10 IU/ml (0.3-0.7); Prothrombin Time 10.9 Seconds (9.0-12.0)
[2023-10-16 10:59] LABS: Anion Gap 8 (3-11); BUN Creatinine Ratio 18.3 (10-20); Blood Urea Nitrogen 19 mg/dl (6-23); Carbon Dioxide 25 mmol/L (21-32); Chloride 104 mmol/L (98-107); Est GFR (African American) 83.3 ml/min; Est GFR (Non-African American) 71.9 ml/min; Glucose 125 mg/dl (70-99(Fasting)); Potassium 3.1 mmol/L (3.5-5.1); Sodium 137 mmol/L (136-145)
[2023-10-16 11:10] LABS: Troponin I High Sensitivity 11261.6 pg/ml (0-20)
[2023-10-16 11:12] LABS: Magnesium 1.9 mg/dl (1.7-2.4); Phosphorus 3.3 mg/dl (2.5-4.9)
--- NOTE | 2023-10-16 11:14 | XRay Report ---
XR chest 1V portable HISTORY: chest pain COMPARISON: Chest 10/02/2023. FINDINGS: The lungs are clear. Cardiac silhouette is top normal in size. No pleural effusions. No pne umothorax. Calcifications noted within the left coronary artery. IMPRESSION: No significant change compared to the prior study. No acute process. ACT 112: Negative or not required by law. Electronically signed by: Satish Shelby M.D. 10/16/2023 11:13 AM
--- NOTE | 2023-10-16 11:45 | Post Anesthesia Assessment ---
Date of Service October 16, 2023 Post Sedation Assessment Vital Signs Pulse Resp BP Pulse Ox O2 Del Method O2 Flow Rate 10/16/23 10:33 77 10 L 108/70 97 10/16/23 10:30 Nasal Cannula 2 10/16/23 10:18 76 15 123/69 97 Recovery Score Activity: Moves 4 extremities Respiration: Deep Breath/Cough Circulation: +/-20% PreAnes Value Consciousness: Fully Awake Oxygen Saturation: O2 needed for >90% Discharge Sedation Level of Care: Fast Track Phase II Post Sedation Plan On clinical assessment, the patient appears to have tolerated the sedation without complications. Patient is recovering as anticipated. Patient will continue to be monitored by nursing and may be discharged when sedation discharge criteria are met per below protocol. Upon Completions of procedure up to 15 minutes continue every 5 minute vital signs and the P.A.R. score; then discharge to a Phase I or Fast Track to Phase II per the following guidelines: * Discharge Patient to appropriate Phase II area if PAR is 8 or greater or return to pre- procedure baseline. The post - procedure orders will be as directed. * If PAR score is less than 8 or not return to pre-procedure baseline then patient will follow Phase I monitoring till PAR is reached for Phase II. The Phase I may be done in procedure room or may call to secure a Phase I area. * If naloxone or flumazenil are used for reversal, hold in Phase I for continued monitoring from when last reversal dose was given for a minimum of 60 minutes or longer pending the nurse and/or physician discretion of patient condition before discharge to Phase II. Please call the Sedation Physician to re-evaluate and complete post-note for discharge to Phase II area. Do NOT discharge from procedure sedation or Phase 1 until post- sedation evaluation note is complete by procedure /sedation MD Sedation Discharge Instructions to be given to the patient at discharge to home.
[2023-10-16] MEDS: fentaNYL citrate PF 100 MCG/2 ML VIAL ONE (12:02)
[2023-10-16] MEDS: niCARdipine HCL INJ 2.5 MG/ML 10 ML AMP ONE (12:03)
[2023-10-16] MEDS: MIDAZOLAM HCL 1 MG/ML 2ML VIAL ONE (12:03)
[2023-10-16] MEDS: HEPARIN (PORCINE) 1000 UNIT/ML 10 ML (CATH LAB USE ONLY) ONE (12:03)
--- NOTE | 2023-10-16 12:03 | Cardiac Catheterization ---
[facility] Data: Office Receptionist Cardiac Status Clinical evaluation leading to the procedure CAD Presenation: Non STEMI Anginal Classification: CCS IV Diagnostic Physicians Name: Thomas Juarez MD Closure Device Recommendations: PCI without planned CABG Cardiac Cath Procedure Full Procedure Date October 16, 2023 Pre-Procedure Diagnosis Pre-Procedure Diagnosis: Acute Coronary Syndrome AUC Score AUC Score: 7 Post-Procedure Diagnosis Post-Procedure Diagnosis: Severe CAD and Successful PCI Procedure(s) Performed Procedure(s) Performed: Coronary Angiography, Left Heart Cath and PTCA Hand Trimmer Thomas Juarez MD Box Press Operator(s) Rodri Estimated Blood Loss Estimated Blood Loss: 10 Medication(s) Medication(s): Heparin, Integrilin, Lidocaine 1%, Nicardipine, Nitroglycerin and Versed Medication(s): Prasugrel Summary of Findings Indication: Recent PCI to LAD complicated by occluded jailed D1. Here with recurrent acute chest pain. Access: 6 Fr slender right radial artery Catheters: [place], EBU 3.5 guide Findings: LM -normal caliber, 20-30% distal LAD -medium caliber, proximal to mid stents widely patent with SIRIA-3 flow. Distal vessel without significant disease and wraps around apex. D1 stent occluded at ostium. Prior small D2 acutely occluded. Circumflex -medium caliber, 60% proximal stenosis at bifurcation with OM1. 30% mid stenosis. OM1 with proximal luminal irregularities. First lateral branch off of OM1 with 80% ostial stenosis. OM 2 without disease. RCA -medium caliber, dominant, diffuse mild disease in proximal through distal segments, up to 40% distally. PDA, PLB branches without significant disease. LVEDP -9 -- PCI -- Antithrombotic therapy: Heparin, prasugrel Procedure: Left main cannulated with EBU 3.5 guide Pre-procedure flow SIRIA 0 Core Sucker 50 wire passed across lesion into distal second diagonal Ostial/proximal diagonal lesion dilated with prolonged 2.0 compliant balloon inflation IC vasodilators administered for spasm Post procedure SIRIA 3 flow in LAD, D2. Minimal residual stenosis and no apparent cardiac complications. Arterial Closure: TR band Summary: 1. Multivessel coronary artery disease --Acute occlusion of small jailed D2 Widely patent proximal to mid LAD stents. Unchanged occlusion of jailed D1 stent. Stable 60% proximal circumflex, 40% distal RCA 2. Normal intracardiac filling pressure 3. Successful angioplasty of small D2 with 2.0 balloon Recommendations: To ICU for continued monitoring Switched clopidogrel to prasugrel, continue DAPT for at least 1 year Continue statin Continue GDMT for cardiomyopathy If stable on telemetry overnight likely home tomorrow. Hemodynamics Rest Ao:: 106/55/78 Final Ao: 104/50 LV: 100/9 Recommendations Recommendations: PCI without planned CABG Specimens Specimens: None Radiation Exposure (mGy) 1374 Contrast (mls) 70 Anesthesia Moderate [id number] Procedural Complication(s) None Disposition ICU I attest to the content of the Intraoperative Record and any orders documented therein. Any exceptions are noted below. [facility] Card Cath Procedure Codes Cardiac Catheterization Procedure 1: Cardiovascular Cath Procedures: 82704 Coronaries and LHC (+/-LV) Moderate Sedation Procedure 1: Sedation/Anesthesia: 59410 Mod Sedation by the same physician;Init15 Min Child Age 5 & Up Procedure 2: Sedation/Anesthesia: 06185 Mod Sedation by the same physician; Ea [id number] Minutes Angioplasty Procedure 1: Cardiovascular Angioplasty Procedures: 52175 PTCA; Single mafor coronary artery or branch RC LC LD PG Care Time/CCT Total # of Minutes Spent Total Time Spent with Patient: Total time spent is greater than 50% in coordination of care (as documented) at patient's floor/unit and/or counseling patient:
[2023-10-16] MEDS: NITROGLYCERIN/D5W 100MCG/ML 20ML SYR ONE (12:04)
[2023-10-16] MEDS: OPTIRAY 350 ONE (12:05)
[2023-10-16] MEDS: PRASugrel TAB 10 MG TAB PO ONE (12:06)
[2023-10-16] MEDS ORDERED: Patient's HEIGHT &/or WEIGHT Needed SCH (12:15)
--- NOTE | 2023-10-16 12:53 | XCELERA ---
[id number]\[id number]
[2023-10-16] MEDS: ICU Protocol for HYPERglycemia SCH (13:22)
[2023-10-16] MEDS: SODIUM CHLORIDE 0.9% 1,000 ML IV SCH (13:27)
[2023-10-16] MEDS: MAGNESIUM SULFATE / D5W 1 GM/100 ML BAG IV SCH (13:49)
[2023-10-16] MEDS: POTASSIUM CHLORIDE CRTAB 20 MEQ TABCR PO STA (13:49)
[2023-10-16] MEDS: POTASSIUM CHLORIDE / WTR 10 MEQ/100 ML PLCT IV SCH (13:49)
[2023-10-16] MEDS ORDERED: Nursing to Pharmacy Communication SCH (16:15)
[2023-10-16] MEDS: METOPROLOL TARTRATE 25 MG TAB PO SCH (20:16)
[2023-10-17 04:58] LABS: Basophils # (auto) 0.06 K/uL (0.00-0.20); Basophils % (auto) 0.9 %; Eosinophils # (auto) 0.36 K/uL (0.00-0.50); Eosinophils % (auto) 5.7 %; Hematocrit (blood only) 36.4 % (42.0-52.0); Hemoglobin 12.1 g/dl (14.0-18.0); Immature Granulocytes # (auto) 0.01 K/uL (0.01-0.20); Immature Granulocytes % (auto) 0.2 %; Lymphocytes % (auto) 22.1 %; Mean Corpuscular Hemoglobin 29.2 pg (25.0-34.0); Mean Corpuscular Hgb Conc 33.2 g/dL (32.0-36.0); Mean Corpuscular Volume 87.9 fL (80.0-100.0); Mean Platelet Volume 10.4 fL (9.4-12.4); Monocytes # (auto) 0.37 K/uL (0.11-0.59); Monocytes % (auto) 5.8 %; Neutrophils # (auto) 4.14 K/uL (1.40-6.50); Neutrophils % (auto) 65.3 %; Platelet Count 205 K/uL (130-400); RDW Coefficient of Variation 12.4 % (11.5-14.5); Red Blood Count 4.14 M/uL (4.70-6.10); White Blood Count 6.34 K/ul (4.8-10.8)
[2023-10-17 05:06] LABS: Magnesium 2.1 mg/dl (1.7-2.4)
[2023-10-17] MEDS ORDERED: NON-FORMULARY MEDICATION (Omeprazole 20 mg capsule,delayed release(DR/EC)) PO SCH (06:30)
--- NOTE | 2023-10-17 07:07 | Critical Care Progress Note ---
Date of Service October 17, 2023 Assessment & Plan (1) Crohns disease: (2) Coronary artery disease: (3) Chest pain: (4) LBBB (left bundle branch block): (5) Abnormal ECG: (6) Systolic CHF: (7) GERD (gastroesophageal reflux disease): Plan 2D echo 10/15/2023: EF 35-40%, mild to moderate mid to apical hypokinesis, normal RV size and function -- Unstable angina History of coronary artery disease s/p stenting mid LAD 10/12/2023 Unsuccessful PCI of the proximal D1 LAD 10/12/2023 Repeat cardiac catheterization 10/16/2023, patent proximal to mid LAD stents, angioplasty of small D2 with balloon On prasugrel, metoprolol, lisinopril, atorvastatin as well as aspirin Troponins have peaked and are now trending down --Hypertension Continue with home blood pressure medication --History of Crohn's disease S/p surgery Not on any medications right now --Prophylaxis VTE: IPC GI: Pantoprazole Lines: Peripheral Diet: Cardiac Plan: In/out: +1.3 L, urine output 301. BMP is pending from today. Followed up to see if there is any replacement of potassium needed Disposition as per cardiology Please note the above document was generated using voice recognition software. It may contain grammatical, syntax or spelling errors.Any formal questions or concerns about the content, text or information contained within the body of this dictation should be directly addressed to the provider for clarification. Admission and Anticipated Discharge Date Admission Date: October 16, 2023 Subjective Patient seen and examined at bedside. No acute distress, no adverse events overnight Did have a bout of vomiting yesterday but nothing today. He finished his breakfast without any issues No chest pain since post cath. No shortness of breath No headache, no blurry vision Has been afebrile Review of Systems 2 Review of Systems: All systems reviewed & are unremarkable except as noted in Subjective Physical Exam 2 Physical Exam: Constitutional: No acute distress HEENT: EOMI, PERRLA Respiratory system: Good air entry bilaterally, no wheeze, no rhonchi, mild crackles bilateral lower lobes CVS: S1-S2 positive, no murmurs or gallops, distant heart sounds Abdomen: Soft, nontender, nondistended, positive bowel sounds x4, midline abdominal scar appreciated Extremities: +2 pulses bilaterally radialis/ dorsalis pedis, no cyanosis, no edema Neuro: Awake alert oriented x3 Psych: Normal mood and affect G/U: No Puri Skin: no rashes, warm and dry Lymphatic: no cervical or axillary lymphadenopathy Results & Data Results & Data Vital Signs (Past 12 Hours) Vital Signs Temp Pulse Resp BP Pulse Ox 10/17/23 06:12 69 16 102/60 91 10/17/23 05:57 70 17 92 10/17/23 05:03 74 14 117/68 92 10/17/23 04:33 69 14 94 10/17/23 04:09 70 19 103/59 L 94 10/17/23 03:54 65 19 92 10/17/23 03:43 36.6 C 10/17/23 03:03 70 17 109/60 93 10/17/23 02:54 64 2 L 93 10/17/23 02:00 64 16 103/62 94 10/17/23 01:09 62 20 101/62 95 10/17/23 00:57 61 19 95 10/17/23 00:00 66 12 107/60 93 10/17/23 00:00 69 10/16/23 23:46 36.6 C 10/16/23 23:12 65 15 92 10/16/23 23:00 111/60 10/16/23 22:51 71 14 94 10/16/23 22:06 69 19 93 10/16/23 22:00 111/61 10/16/23 21:51 69 20 91 10/16/23 21:00 73 15 116/62 94 10/16/23 20:00 66 18 112/63 91 Laboratory Results 10/17/23 04:22 10/16/23 10:18 Coding Level of Care Code 30319 SUB INP/OBS CARE 2/35MIN Diagnoses Crohns disease K50.90 Coronary artery disease I25.10 Chest pain R07.9 LBBB (left bundle branch block) I44.7 Abnormal ECG R94.31 Systolic CHF I50.20 GERD (gastroesophageal reflux disease) K21.9
[2023-10-17] MEDS: PANTOprazole 40 MG TAB PO SCH (08:09)
[2023-10-17] MEDS: ASPIRIN 81 MG ECTAB PO SCH (08:10)
[2023-10-17] MEDS: PRASugrel TAB 10 MG TAB PO SCH (08:11)
[2023-10-17] MEDS: CYANOCOBALAMIN (B-12) 2,500 MCG TABLET PO SCH (08:11)
[2023-10-17] MEDS: lisinopril 5 MG TAB PO SCH (08:11)
[2023-10-17] MEDS: ATORVASTATIN 40 MG TAB PO SCH (08:12)
[2023-10-17] MEDS: CHOLECALCIFEROL 125 MCG (5,000 UNITS) TAB PO SCH (08:12)
[2023-10-17 08:35] LABS: BUN Creatinine Ratio 18.3 (10-20); Calcium 8.8 mg/dl (8.6-10.3); Creatinine Clr Calc Pharmacy 80.3 ml/min; Est GFR (African American) 95.4 ml/min; Est GFR (Non-African American) 82.3 ml/min; Potassium 4.2 mmol/L (3.5-5.1)
--- NOTE | 2023-10-17 08:41 | Cardiology Progress Note ---
Date of Service October 17, 2023 Assessment & Plan (1) Coronary artery disease: Plan: Post POBA of acutely occluded D2 10/16/2023 Prior PCI with 2 ABDI to LADwidely patent Prior intraprocedure occlusion of jailed E2plyaxlj occluded 2. CardiomyopathyEF 35% apical anterolateral wall motion abnormalities 3. Hypertension 4. LBBB 5. Crohn's Chest pain-free, troponin peaked. Hemodynamically and electrically stable overnight. No apparent access site complications. From a cardiac standpoint okay with discharge today. Home on dual antiplatelet therapy with either prasugrel or ticagrelor pending on which is more affordable for patient. Continue Toprol-XL 50 mg daily Continue current lisinopril Continue current statin. Appreciate ICU and hospital medicine care. Follow-up with cardiology in 2 weeks. Admission and Anticipated Discharge Date Admission Date: October 16, 2023 Subjective Feeling well this morning. No recurrent chest pain. Telemetry reviewedno events. Review of Systems Review of Systems: All systems reviewed & are unremarkable except as noted in HPI & below Physical Exam Physical Exam: General: Comfortable HEENT: Sclerae anicteric Lungs: Clear to auscultation bilaterally Cardiac: Regular rate and rhythm, no murmurs. Vascular: Right radial artery access site with no hematoma. Old ecchymosis. Distal pulse and sensation intact. Abdomen: Soft, nontender Extremities: Well perfused, no peripheral edema Neuro: Nonfocal Psych: Alert orient x3, normal affect and mood Results & Data Vital Signs (Past 12 Hours) Vital Signs Temp Pulse Resp BP Pulse Ox O2 Del Method 10/17/23 07:12 69 17 112/64 93 Room Air 10/17/23 06:12 69 16 102/60 91 10/17/23 05:57 70 17 92 10/17/23 05:03 74 14 117/68 92 10/17/23 04:33 69 14 94 10/17/23 04:09 70 19 103/59 L 94 10/17/23 03:54 65 19 92 10/17/23 03:43 97.9 F 10/17/23 03:03 70 17 109/60 93 10/17/23 02:54 64 2 L 93 10/17/23 02:00 64 16 103/62 94 10/17/23 01:09 62 20 101/62 95 10/17/23 00:57 61 19 95 10/17/23 00:00 66 12 107/60 93 10/17/23 00:00 69 10/16/23 23:46 97.9 F 10/16/23 23:12 65 15 92 10/16/23 23:00 111/60 10/16/23 22:51 71 14 94 10/16/23 22:06 69 19 93 10/16/23 22:00 111/61 10/16/23 21:51 69 20 91 10/16/23 21:00 73 15 116/62 94 PG Care Time/CCT Total # of Minutes Spent Total Time Spent with Patient: Total time spent is greater than 50% in coordination of care (as documented) at patient's floor/unit and/or counseling patient: Coding Level of Care Code 11982 SUB INP/OBS CARE 2/35MIN Diagnoses Coronary artery disease I25.10
--- NOTE | 2023-10-17 11:30 | Discharge Summary ---
Date of Service October 17, 2023 Admission HPI Per Admitting Provider 72-year-old male patient transferred from [facility] due to unstable angina concern for acute EKG changes. Patient underwent a left heart catheterization 10/12/2023 at [facility] which showed multivessel coronary artery disease with increased calcifications. Patient had a stent placed to his mid LAD and attempted stent to the first diagonal was unsuccessful. The. Patient typically follows with [facility]. Patient did have episode of V-fib during the procedure which required defibrillation with 200 J with good success. Patient's troponin peaked 57,000. Due to computer downtime patient was discharged on aspirin and Plavix. Initially the chart was listed as Brilinta but this was not cost effective for the patient he was loaded with 300 mg of Plavix prior to discharge and discharged home on Plavix and aspirin for his antiplatelet agents, metoprolol, lisinopril, atorvastatin. Principal Diagnosis Non-ST elevation ID, hypokalemia Discharge Exam General-alert and oriented x3, no fever, no chills HEENT-head atraumatic and normocephalic, pupils equal and reactive to light, extraocular muscles intact Neck-no lymphadenopathy or thyromegaly, trachea midline Chest-clear to auscultation. No rales, wheezing or rhonchi Cardiac-regular rate and rhythm, normal S1 and S2 Abdomen-normal bowel sounds, no hepatosplenomegaly Extremities-no cyanosis, clubbing, or edema Neuro-cranial nerves II through XII intact, motor and sensory function within normal limits, strength symmetrical, no focal deficits Psych-normal affect, normal mood Discharge Data Allergies Allergy/AdvReac Type Severity Reaction Status Date / Time Penicillins Allergy Unknown as a child Verified 10/12/23 10:20 - unknown Consultations 10/16/23 08:14 Consult Substation Operator Routine 10/17/23 10:56 Consult Cardiac Rehabilitation Routine Procedures Performed Operation Date: 10/16/23 10:45 Actual Procedures s Cineradiography w/Routine Exam - Thomas Juarez MD p POBA SGL Vessel - Thomas Juarez MD p Cath, Left with Cors and Vent - Thomas Juarez MD Ordered Studies 10/16/23 10:41 CL Cath Imgs for PACS use only Routine Hospital Course (1) Coronary artery disease: presented with 9/10 CP to [facility] has LAD stent 10/11, dc on asa/plavix/metoprolol/lisinopril/atorvastatin ECG with LBBB similar to old Pain not /, BP stable, oxygen sat stable. Patient had a catheterization lab found to have a small diagonal 2 which is likely culprit lesion. LAD stent was wide open. Diagonal 2 was ballooned. Patient had good resolution of his symptoms. Cardiology saw the patient today, October 16, and cleared him for discharge (2) Crohns disease: no GI symptoms, pervious surgery, on omeprazole Plan Home today, October 16 Total Time Total Time Spent Total Time Spent (In Minutes): 45 minutes Discharge Plan Discharge Items Patient Disposition: Home - Self-Care Reason For Visit: UNSTABLE ANGINA RECENT STENT LAD Discharge Diagnosis: Acute non-ST elevation ID, hypokalemia Activity: As commented below Activity Comment: Avoid overexertion Non-emergency contact: Primary Care Provider and Reheater Helper Call non-emergency contact if: you have any medication questions and your symptoms worsen Follow-up/Referrals: Noah Salmon D.O. [Primary Care Provider] - Diet: Regular and Heart Healthy Addtl Attending Provider Instructions: Use nitroglycerin under the tongue for any recurrent chest discomfort. See cardiology and follow-up as directed. Prasugrel replaces Brilinta. Lisinopril has been decreased to 5mg daily. Atorvastatin is new Pending Studies at Discharge: No Stand-Alone Forms: My [facility], Smoking Cessation Medications and DC Order Prescriptions: New atorvastatin 40 mg Tablet 40 mg PO QAM Qty: 30 0RF lisinopril [Zestril] 5 mg Tablet 5 mg PO QAM Qty: 30 0RF prasugrel 10 mg Tablet 10 mg PO QAM Qty: 30 0RF nitroglycerin 0.4 mg tablet, sublingual 0.4 mg sublingual Q5M PRN (Reason: chest discomfort) Qty: 25 0RF Continued amlodipine 10 mg tablet 10 mg PO DAILY Qty: 90 3RF omeprazole 20 mg capsule,delayed release(DR/EC) 20 mg PO DAILYBB cholecalciferol (vitamin D3) 250 mcg (10,000 unit) capsule 250 mcg PO QAM mecobalamin (vitamin B12) 5,000 mcg tablet,chewable 5,000 mcg PO QAM metoprolol tartrate 25 mg tablet 25 mg PO BID Qty: 60 5RF aspirin 81 mg tablet,delayed release (DR/EC) 81 mg PO DAILY Qty: 90 3RF Discontinued lisinopril 10 mg tablet 10 mg PO QAM Brilinta 90 mg Tablet 90 mg PO BID Qty: 60 5RF Discharge Orders: Discharge Order (Routine); Ordered 10/17/23 Ordered By: Abhijit Hagan Admission Data Admit Date/Time: 10/16/23 10:10 Attending Provider: Abhijit Hagan Admit Provider: Brody Lunsford Primary Care Provider: Noah Salmon Other Providers: Elli Fraga Coding Level of Care Code 02097 INP/OBS DISCH >30 MIN Diagnoses Coronary artery disease I25.10 Crohns disease K50.90
--- NOTE | 2023-10-18 06:19 | Electrocardiogram Report ---
Test Reason : Blood Pressure : / mmHG Vent. Rate : 079 BPM Atrial Rate : 079 BPM P-R Int : 164 ms QRS Dur : 150 ms QT Int : 446 ms P-R-T Axes : 070 -11 236 degrees QTc Int : 511 ms Poor data quality, interpretation may be adversely affected Normal sinus rhythm Left bundle branch block Abnormal ECG When compared with ECG of 12-OCT-2023 15:16, T wave inversion more evident in Anterolateral leads Confirmed by Christopher Plummer ([id number]) on 10/18/2023 6:19:34 AM Referred By: REFERRED SELF Confirmed By:Christopher Plummer
--- NOTE | 2023-10-18 06:23 | Electrocardiogram Report ---
Test Reason : Blood Pressure : / mmHG Vent. Rate : 066 BPM Atrial Rate : 066 BPM P-R Int : 172 ms QRS Dur : 148 ms QT Int : 486 ms P-R-T Axes : 029 -11 193 degrees QTc Int : 509 ms Normal sinus rhythm Left bundle branch block Abnormal ECG When compared with ECG of 16-OCT-2023 10:12, (unconfirmed) No significant change was found Confirmed by Christopher Plummer ([id number]) on 10/18/2023 6:23:02 AM Referred By: REFERRED SELF Confirmed By:Christopher Plummer
== END 2023-10-17 13:10 | disposition home or self-care (01) | DRG 322 ==
LOC: SUATTDRO 10:10 → 1E 10:10

== ENCOUNTER 2024-02-27 12:52 | Observation (INO) ==
[~2024-02-27 12:52] MED LIST: BUPIVACAINE 0.25% PF 30 ML VIAL ONE; LIDOCAINE 1% LOCAL 20 ML VIAL ONE; VANCOMYCIN HCL 1000MG/20ML VIAL ONE; WATER, STERILE FOR INJ 10 ML VIAL ONE
--- NOTE | 2024-02-27 14:07 | History & Physical Bridge Note ---
Date of Service February 27, 2024 History & Physical Bridge Note I have examined the patient, reviewed the History & Physical and in the interval since the performance of the History & Physical I have noted the following changes of clinical significance: no changes noted
--- NOTE | 2024-02-27 14:07 | Pre Anesthesia Assessment ---
Date of Service February 27, 2024 Pre Sedation Assessment Vital Signs Temp Pulse Resp BP Pulse Ox O2 Del Method 02/27/24 13:05 36.8 C 80 16 142/75 H 95 Room Air Cardiovascular + regular rate Respiratory + respiratory effort normal Pre-Sedation Airway Assessment Smoking Status: Current some day smoker Hx Sleep Apnea: No Hx Difficult Intubation: No Short, Thick Neck: No Thyromental Distance: > or= 3.5 Finger Breadths Oral Cavity: + WNL Mallampati Class: III ASA: ASA3 NPO Status Date of Last Intake of Fluids: 02/27/24 Time of Last Intake of Fluids: 07:00 Last Oral Intake of Fluids Comment: sips with pills Date of Last Intake of Solid Food: 02/26/24 Time of Last Intake of Solid Foods: 20:00 Procedure Planning Contraindications for Sedation: none Current Medications Reviewed: Yes Notes The planned sedation has been discussed with the patient. Informed Consent was obtained. I have identified the patient, determined the appropriateness of sedation and have assessed the patient immediately prior to the procedure. All medicine(s) and interventions are by my order.
[2024-02-27] MEDS: VANCOMYCIN HCL 1000MG/20ML VIAL ONE (15:30)
[2024-02-27] MEDS: LIDOCAINE 1% LOCAL 20 ML VIAL ONE (15:30)
[2024-02-27] MEDS: BUPIVACAINE 0.25% PF 30 ML VIAL ONE (15:30)
[2024-02-27] MEDS: CLINDAMYCIN 900 MG/D5W 50 ML BAG IV ONE (15:31)
[2024-02-27] MEDS: MIDAZOLAM HCL 5 MG/ML 1 ML VIAL ONE (15:31)
[2024-02-27] MEDS: fentaNYL citrate PF 100 MCG/2 ML VIAL ONE (15:31)
[2024-02-27] MEDS: ceFAZolin 330 MG/ML 1 GM VIAL ONE (15:31)
[2024-02-27] MEDS ORDERED: oxyCODONE HCL IR 5 MG TAB (IMMEDIATE RELEASE) PO PRN (15:47)
[2024-02-27] MEDS ORDERED: ACETAMINOPHEN 325 MG TAB PO PRN (15:47)
--- NOTE | 2024-02-27 15:47 | Post Anesthesia Assessment ---
Date of Service February 27, 2024 Post Sedation Assessment Vital Signs Temp Pulse Resp BP Pulse Ox O2 Del Method 02/27/24 13:05 36.8 C 80 16 142/75 H 95 Room Air Recovery Score Activity: Moves 4 extremities Respiration: Deep Breath/Cough Circulation: +/-20% PreAnes Value Consciousness: Fully Awake Oxygen Saturation: > 92% On Room Air Discharge Sedation Level of Care: Fast Track Phase II Post Sedation Plan On clinical assessment, the patient appears to have tolerated the sedation without complications. Patient is recovering as anticipated. Patient will continue to be monitored by nursing and may be discharged when sedation discharge criteria are met per below protocol. Upon Completions of procedure up to 15 minutes continue every 5 minute vital signs and the P.A.R. score; then discharge to a Phase I or Fast Track to Phase II per the following guidelines: * Discharge Patient to appropriate Phase II area if PAR is 8 or greater or return to pre- procedure baseline. The post - procedure orders will be as directed. * If PAR score is less than 8 or not return to pre-procedure baseline then patient will follow Phase I monitoring till PAR is reached for Phase II. The Phase I may be done in procedure room or may call to secure a Phase I area. * If naloxone or flumazenil are used for reversal, hold in Phase I for continued monitoring from when last reversal dose was given for a minimum of 60 minutes or longer pending the nurse and/or physician discretion of patient condition before discharge to Phase II. Please call the Sedation Physician to re-evaluate and complete post-note for discharge to Phase II area. Do NOT discharge from procedure sedation or Phase 1 until post- sedation evaluation note is complete by procedure /sedation MD Sedation Discharge Instructions to be given to the patient at discharge to home.
--- NOTE | 2024-02-27 15:47 | Electrophysiology Report ---
Date of Service February 27, 2024 Electrophysiology Procedure Electrophysiology Procedure Report Procedure performed: Implantation of biventricular ICD Staff glass science engineer: Thomas Guillaume MD Indication: The patient is a 73-year-old gentleman with an ischemic cardiomyopathy and ejection fraction less than 35% despite guideline directed medical therapy. He has not suffered a myocardial infarction in the past 40 days or had revascularization in the last 90 days. He is [place] heart Association class 2 symptoms. He has an anticipated longevity greater than 1 year. Based on this information was felt to be a good candidate for an ICD as primary prevention against sudden cardiac . Shared decision-making was employed during our discussion of an ICD. Additionally, he has a left bundle branch block morphology on his EKG and appears to be a good candidate for cardiac resynchronization therapy. Procedure in detail: The patient was informed of the risks benefits and alternatives to the intended procedure and she wished to proceed. He was taken to the electrophysiology suite in a fasting state. A preoperative antibiotic had been administered. The patient was monitored electrocardiographically throughout today's procedure and conscious sedation was administered per protocol. The left upper pectoral area is prepped and draped in usual sterile fashion. This area was anesthetized using subcutaneous administration of a xylocaine solution. An incision was made at this site and carried down to the prepectoralis fascia using sharp dissection. Electrocautery was also employed for dissection as well as for hemostasis. A device pocket was fashioned tissues above the pectoralis muscle. Subsequent to this maneuver the left axillary vein was accessed using modified Seldinger technique. Sheaths were placed over guidewires at this site and used to facilitate passage of the pacing leads to the respective chambers under fluoroscopic guidance. This included right atrial and right ventricular leads. Adequate sensing and threshold parameters were obtained prior to Active fixation of the leads to the endocardial surface. The proximal portion leads were then sutured the prepectoral fascia using nonabsorbable suture. A sheath was placed over the remaining guidewire and used facilitate passage of a guiding catheter for engagement of the coronary sinus. Once engaged limited coronary sinus venography was performed in order to identify a suitable target vessel. Once identified standard guidewire techniques were employed to deliver the lead to the target vessel. Adequate sensing threshold parameters were obtained in the absence of diaphragmatic stimulation at high-output were confirmed prior to removal of the guiding catheter. The proximal portion lead was then sutured to prepectoralis fascia using nonabsorbable suture. The device pocket was irrigated with antibiotic solution. The leads were then attached to the device. The device and leads were then placed in the pocket and pocket was closed in 3 layers of absorbable suture. Steri-Strips and sterile dressing were applied. The device was tested noninvasively prior to conclusion the procedure. The patient tolerated procedure well there no immediate complications. Equipment used: New pulse generator: [employer]. Model number: [id number] serial number [id number] Right atrial lead: [employer] Medtronic. Model number: 5076 serial number [id number] Right ventricular lead: [employer] Medtronic. Model number: 6935M serial number [id number] Coronary sinus lead: [employer] Medtronic. Model 4298 serial number [id number] Measured data: Right atrial lead: P-waves measured 2 mV. Pacing threshold was 1.25 volts at 0.4 milliseconds with a pacing impedance of 399 Ohms Right ventricular lead: R-waves measured 9.5 mV. Pacing threshold was 0.75 vol ts at 0.4 milliseconds with a pacing impedance of 627 Ohms Coronary sinus lead: In the LV 2 to LV 3 configuration the threshold was 2.0 volts at 0.4 milliseconds with a pacing impedance of 475 over Impression: Successful implantation of biventricular ICD MNPG Electrophysiology codes Pacing Procedure 1: Pacin BiV electrode w/Pacer / ICD implant, add on code ICD Procedure 1: ICD: 15866 Insert single or dual ICD system PG Moderate Sedation Codes Moderate Sedation Codes Procedure 1: Sedation/Anesthesia: 94849 Mod Sedation by the same physician;Init15 Min Child Age 5 & Up Procedure 2: Sedation/Anesthesia: 16808 Mod Sedation by the same physician; Ea [id number] Minutes
[2024-02-27] MEDS: WATER, STERILE FOR INJ 10 ML VIAL ONE (17:12)
[2024-02-28] MEDS: ceFAZolin 1000MG 1,000 MG/7.5 ML SYR IV ONE (00:39)
[2024-02-28 07:22] VITALS: BP 151/73; RESP 18; TEMP 98.1; O2SAT 91
[2024-02-28 07:25] VITALS: PULSE 71
[2024-02-28] MEDS: PANTOprazole 40 MG TAB PO SCH (08:20)
--- NOTE | 2024-02-28 08:29 | XRay Report ---
EXAM: XR chest 2V PA/lateral CLINICAL HISTORY: EVAL FOR PNEUMOTHORAX RAYNE/EKM TECHNIQUE: X-ray images of the chest were obtained in posteroanterior (PA) and lateral projections. COMPARISON: prior studies latest dated 10/16/2023 FINDINGS: Pulmonary Parenchyma: Prominent bronchovascular markings bilaterally No evidence of consolidation, collapse, or focal opacities. No pulmonary nodules were identified. Blunting of right costophrenic angle seen could be due to pleural effusion or pleural thickening No evidence of left pleural effusion or pleural thickening. Heart and Mediastinum: Cardiac pacemaker device seen Dilated unfolded aortic knuckle Heart size and shape are normal. No mediastinal widening or masses. No hilar or mediastinal lymphadenopathy. Bony Thorax: Thoracic spondylosis seen as sclerosed end plates and anterior osteophytes Soft Tissues: Soft tissues overlying the chest wall are unremarkable. IMPRESSION: 1. Stationary Prominent bronchovascular markings bilaterally 2. Newly developed Blunting of the right costophrenic angle seen could be due to pleural effusion or pleural thickening 3. Cardiac pacemaker device seen 4. Thoracic spondylosis DISCLAIMER:A subtle bone abnormality or fracture may not be readily apparent on x-rays, thus clinical correlation and further imaging including follow up CT, MRI, or follow up x-rays are advised as needed. Electronically signed by Raf Lundberg 02-28-2024 08:29 AM
--- NOTE | 2024-02-28 08:58 | Discharge Summary ---
Date of Service February 28, 2024 Admission HPI Per Admitting Provider The patient has history of coronary disease and associated cardiomyopathy. Despite guideline directed medical therapy he has a persistently low ejection fraction and was referred for an ICD. Also known to have left bundle branch block and a biventricular device was selected. Principal Diagnosis Cardiomyopathy Discharge Exam At the time of discharge the patient was feeling well. Evaluation of the device implant site revealed some mild ecchymosis. No drainage. No hematoma. Discharge Data Allergies Allergy/AdvReac Type Severity Reaction Status Date / Time Penicillins Allergy Unknown as a child Verified 02/27/24 13:12 - unknown Procedures Performed Operation Date: 02/27/24 14:00 Actual Procedures p ICD Insertion Single or Dual - Thomas Guillaume MD Ordered Studies 02/21/24 09:45 EP Lab Images for PACS ONCE 02/27/24 06:45 EP Lab Images for PACS ONCE Hospital Course (1) Cardiomyopathy: On the day of admission the patient underwent implantation of a Medtronic biventricular ICD. No associated complications. The following morning was feeling well and ambulatory. Vital signs were normal. Device implant site without complication. Chest x-ray demonstrated stable lead position without pneumothorax. Device interrogation revealed normal function of all 3 leads. Total Time Total Time Spent Total Time Spent (In Minutes): 20 Discharge Plan Discharge Items Patient Disposition: Home - Self-Care Reason For Visit: Cardiomyopathy Discharge Diagnosis: cardiomyopathy Condition on Discharge: Good Activity: Per Instructions section Activity Comment: No lifting left arm above shoulder behind neck for 6 weeks Lifting: No more than 10 pounds Lifting Comment: No more than 10 lb with left arm for 6 weeks Bathing: Keep incision dry Bathing Comment: Keep wound dry and Steri-Strips intact for 7 days Sexual Activity: When tolerated Exercise/Sports: Rest today Driving/Machine Use: No driving until after 3:00 p.m. today Non-emergency contact: Guest Relations Associate Call non-emergency contact if: you have any medication questions, your symptoms worsen, you have a fever, your wound has increased redness, your wound has increased drainage and your wound pain has increased Follow-up/Referrals: Noah Salmon D.O. [Primary Care Provider] - 03/05/24 10:00 am (Hospital follow up on March 05 at 10 am) Diet: Heart Healthy Addtl Attending Provider Instructions: May remove outer bulky dressing tomorrow Recommend follow-up with his buttoner in 1-2 months Pending Studies at Discharge: No Stand-Alone Forms: My [facility], Smoking Cessation Medications and DC Order Prescriptions: Continued prasugrel 10 mg tablet 10 mg PO QAM Qty: 90 3RF metoprolol succinate [Toprol XL] 50 mg tablet extended release 24 hr 50 mg PO DAILY Qty: 90 3RF omeprazole 20 mg capsule,delayed release(DR/EC) 20 mg PO DAILYBB cholecalciferol (vitamin D3) 250 mcg (10,000 unit) capsule 250 mcg PO QAM mecobalamin (vitamin B12) 5,000 mcg tablet,chewable 5,000 mcg PO QAM lisinopril 5 mg tablet 5 mg PO DAILY Qty: 90 3RF atorvastatin 40 mg tablet 40 mg PO QAM Qty: 30 0RF aspirin 81 mg tablet,delayed release (DR/EC) 81 mg PO DAILY Qty: 90 3RF nitroglycerin 0.4 mg tablet, sublingual 0.4 mg sublingual Q5M PRN (Reason: chest discomfort) Qty: 25 0RF Discharge Orders: Discharge Order (Routine); Ordered 02/28/24 Ordered By: Thomas Guillaume Admission Data Admit Date/Time: 02/27/24 15:17 Attending Provider: Thomas Guillaume Admit Provider: Thomas Guillaume Primary Care Provider: Noah Salmon Coding Level of Care Code 25427 IN/OBS DISCH 30 MIN/LESS Diagnoses Cardiomyopathy I42.9
[2024-02-28] MEDS: ASPIRIN 81 MG ECTAB PO SCH (10:05)
[2024-02-28] MEDS: METOPROLOL SUCC 50MG EXT REL TAB PO SCH (10:05)
[2024-02-28] MEDS: PRASugrel TAB 10 MG TAB PO SCH (10:05)
[2024-02-28] MEDS: lisinopril 5 MG TAB PO SCH (10:06)
[2024-02-28] MEDS: ATORVASTATIN 40 MG TAB PO SCH (10:06)
--- NOTE | 2024-02-28 13:51 | Electrocardiogram Report ---
Test Reason : Blood Pressure : */* mmHG Vent. Rate : 68 BPM Atrial Rate : 68 BPM P-R Int : 174 ms QRS Dur : 122 ms QT Int : 442 ms P-R-T Axes : 40 -23 131 degrees QTcB Int : 469 ms Normal sinus rhythm Left bundle branch block T wave abnormality, consider anterior ischemia Abnormal ECG When compared with ECG of 03-Feb-2024 08:48, Premature ventricular complexes are no longer Present Confirmed by Jae Brunner ([id number]) on 02/28/2024 1:50:39 PM Referred By: Benjie Bains Confirmed By: Jae Brunner
--- NOTE | 2024-02-28 13:57 | Electrocardiogram Report ---
Test Reason : Blood Pressure : */* mmHG Vent. Rate : 75 BPM Atrial Rate : 75 BPM P-R Int : 170 ms QRS Dur : 122 ms QT Int : 484 ms P-R-T Axes : 32 -1 -16 degrees QTcB Int : 540 ms Atrial-sensed ventricular-paced rhythm Abnormal ECG When compared with ECG of 27-Feb-2024 16:38, (unconfirmed) Electronic ventricular pacemaker has replaced Sinus rhythm Confirmed by Jae Brunner ([id number]) on 02/28/2024 1:57:02 PM Referred By: Benjie Bains Confirmed By: Jae Brunner
== END 2024-02-28 11:05 | disposition home or self-care (01) ==
LOC: EP 12:52 → 2S 12:52
PROC: EPB.ICD (2024-02-27 14:00)